=== PATIENT | female | born 1975 | race Caucasian/White ===

== ENCOUNTER 2017-03-28 22:22 | Emergency (ER) | payer MEDICARE, MEDICAID ==
[2017-03-28] MEDS ORDERED: Ondansetron 4 MG/2 ML SDV IVPUSH ONE (22:49)
[2017-03-28] MEDS ORDERED: Sodium Chloride 0.9% 1,000 ML IV SCH (23:00)
[2017-03-28 23:39] VITALS: BP 130/87
--- NOTE | 2017-03-29 00:28 | EDM.PDOC ---
ED HPI GENERAL MEDICAL PROBLEM - General Chief Complaint: General Stated Complaint: DEHYDRATED Time Seen by Provider: 03/28/17 22:48 Source of Information: Reports: Patient, Family History Limitations: Reports: No Limitations - History of Present Illness INITIAL COMMENTS - FREE TEXT/NARRATIVE: History of present illness: [41-year-old female who works at [employer] presents here complaining of dehydration. She was out fishing today as well. Her mother is here with her and states that she's had trouble with dehydration before she doesn't drink enough fluids. 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 She has a seizure disorder and states that she usually has seizures at night and she does not remember them. She's had no fever chills sweats cough cold symptoms sore throat she has some nausea no suspicion diarrhea dysuria she did vomit one time prior to coming in.] Review of systems: As per history of present illness and below otherwise all systems reviewed and negative. Past medical history: As per history of present illness and as reviewed below otherwise noncontributory. Surgical history: As per history of present illness and as reviewed below otherwise noncontributory. Social history: No reported history of drug or alcohol abuse. Family history: As per history of present illness and as reviewed below otherwise noncontributory. Physical exam: HEENT: Atraumatic, normocephalic, pupils reactive, negative for conjunctival pallor or scleral icterus, mucous membranes dry, throat clear, neck supple, nontender, trachea midline. Lungs: Clear to auscultation, breath sounds equal bilaterally, chest nontender. Heart: S1S2, regular, negative for clicks, rubs, or JVD. Abdomen: Soft, nondistended, nontender. Negative for masses or hepatosplenomegaly. Negative for costovertebral tenderness. Pelvis: Stable nontender. Genitourinary: Deferred. Rectal: Deferred. Extremities: Atraumatic, negative for cords or calf pain. Neurovascular unremarkable. Neuro: Awake, alert, oriented. Cranial nerves II through XII unremarkable. Cerebellum unremarkable. Motor and sensory unremarkable throughout. Exam nonfocal. Diagnostics: [CBC and complete metabolic panel were done along with a UA and urine drug screen of the diagnostic significance was discovered. She has no dysuria you know she has some leukocyte esterase in her urine I don't believe she has UTI] Therapeutics: [She received a liter of fluids while here plus Zofran and felt better] Impression: [Dehydration] Plan: [Follow-up as needed. I took some time to talk to her about how to hydrate at home and at work.] Definitive disposition and diagnosis as appropriate pending reevaluation and review of above. - Related Data Allergies Allergy/AdvReac Type Severity Reaction Status Date / Time No Known Allergies Allergy Verified 02/08/16 21:07 Home Meds: Home Meds Citalopram [Citalopram Hbr] 40 mg PO DAILY 12/30/13 [History] Levothyroxine [Synthroid] 50 mcg PO BEDTIME 12/30/13 [History] PHENobarbital 97.2 mg PO DAILY 12/30/13 [History] Phenytoin Sodium Extended [Dilantin] 230 mg PO DAILY 12/30/13 [History] Multi-Vitamin 1 tab PO DAILY 02/28/15 [History] Past Medical History HEENT History: Reports: Impaired Vision Neurological History: Reports: Seizure Other Neuro History: epilepsy Psychiatric History: Reports: Depression Endocrine/Metabolic History: Reports: Hypothyroidism - Past Surgical History GI Surgical History: Reports: Appendectomy Female Surgical History: Reports: Hysterectomy Social & Family History - Tobacco Use Smoking Status *Q: Never Smoker Second Hand Smoke Exposure: No - Caffeine Use Caffeine Use: Reports: None - Alcohol Use Days Per Week of Alcohol Use: 0 - Recreational Drug Use Recreational Drug Use: No - Living Situation & Occupation Living situation: Reports: Single Occupation: Employed ED ROS GENERAL - Review of Systems Review Of Systems: ROS reveals no pertinent complaints other than HPI. ED EXAM, GENERAL - Physical Exam Exam: See Below Course - Vital Signs Last Recorded V/S: Last Vital Signs Temp 36.6 C 03/28/17 22:33 Pulse 84 03/28/17 22:33 Resp 20 03/28/17 22:33 BP 130/87 03/28/17 23:38 Pulse Ox 94 L 03/28/17 22:33 - Orders/Labs/Meds Orders: Active Orders 24 hr Category Date Time Status Sodium Chloride 0.9% [Normal Saline] 1,000 ml Med 03/28/17 23:00 Active IV ASDIRECTED Medication Orders Sodium Chloride (Normal Saline) 1,000 mls @ 999 mls/hr IV ASDIRECTED BRII Last Admin: 03/28/17 23:04 Dose: 999 mls/hr Labs: Laboratory Tests 03/28/17 03/28/17 03/28/17 Range/Units 22:48 22:48 22:48 WBC 5.8 (4.5-11.0) K/uL RBC 4.86 (3.30-5.50) M/uL Hgb 12.7 D (12.0-15.0) g/dL Hct 39.3 (36.0-48.0) % MCV 81 (80-98) fL MCH 26 L (27-31) pg MCHC 32 (32-36) % Plt Count 332 (150-400) K/uL Neut % (Auto) 48 (36-66) % Lymph % (Auto) 38 (24-44) % [place] % (Auto) 14 H (2-6) % Eos % (Auto) 0 L (2-4) % Baso % (Auto) 0 (0-1) % Sodium 138 L (140-148) mmol/L Potassium 4.0 (3.6-5.2) mmol/L Chloride 103 (100-108) mmol/L Carbon Dioxide 27 (21-32) mmol/L Anion Gap 12.0 (5.0-14.0) mmol/L BUN 15 D (7-18) mg/dL Creatinine 0.9 (0.6-1.0) mg/dL Est Cr Clr Drug Dosing 61.51 mL/min Estimated GFR (MDRD) > 60 (>60) Glucose 101 (74-106) mg/dL Calcium 8.0 L (8.5-10.1) mg/dL Total Bilirubin 0.1 L (0.2-1.0) mg/dL AST 24 (15-37) U/L ALT 33 (12-78) U/L Alkaline Phosphatase 183 H (46-116) U/L Total Protein 7.6 (6.4-8.2) g/dL Albumin 3.4 (3.4-5.0) g/dL Globulin 4.2 H (2.3-3.5) g/dL Albumin/Globulin Ratio 0.8 L (1.2-2.2) TSH, Ultra Sensitive (0.358-3.740) uIU/mL Urine Color Urine Appearance Urine pH (4.5-8.0) Ur Specific [place] (1.008-1.030) Urine Protein (NEGATIVE) mg/dL Urine Glucose (UA) (NEGATIVE) mg/dL Urine Ketones (NEGATIVE) mg/dL Urine Occult Blood (NEGATIVE) Urine Nitrite (NEGATIVE) Urine Bilirubin (NEGATIVE) Urine Urobilinogen (NORMAL) mg/dL Ur Leukocyte Esterase (NEGATIVE) Urine RBC (0-5) Urine WBC (0-5) Ur Epithelial Cells Amorphous Sediment Urine Bacteria Urine Mucus Urine HCG, Qual Urine Opiates Screen (NEGATIVE) Ur Oxycodone Screen (NEGATIVE) Urine Methadone Screen (NEGATIVE) Ur Propoxyphene Screen (NEGATIVE) Ur Barbiturates Screen (NEGATIVE) Ur Tricyclics Screen (NEGATIVE) Ur Phencyclidine Scrn (NEGATIVE) Ur Amphetamine Screen (NEGATIVE) U Methamphetamines Scrn (NEGATIVE) Urine MDMA Screen (NEGATIVE) U Benzodiazepines Scrn (NEGATIVE) U Cocaine Metab Screen (NEGATIVE) U Marijuana (THC) Screen (NEGATIVE) Ethyl Alcohol < 3 mg/dL 03/28/17 03/28/17 03/28/17 Range/Units 22:50 23:38 23:38 WBC (4.5-11.0) K/uL RBC (3.30-5.50) M/uL Hgb (12.0-15.0) g/dL Hct (36.0-48.0) % MCV (80-98) fL MCH (27-31) pg MCHC (32-36) % Plt Count (150-400) K/uL Neut % (Auto) (36-66) % Lymph % (Auto) (24-44) % [place] % (Auto) (2-6) % Eos % (Auto) (2-4) % Baso % (Auto) (0-1) % Sodium (140-148) mmol/L Potassium (3.6-5.2) mmol/L Chloride (100-108) mmol/L Carbon Dioxide (21-32) mmol/L Anion Gap (5.0-14.0) mmol/L BUN (7-18) mg/dL Creatinine (0.6-1.0) mg/dL Est Cr Clr Drug Dosing mL/min Estimated GFR (MDRD) (>60) Glucose (74-106) mg/dL Calcium (8.5-10.1) mg/dL Total Bilirubin (0.2-1.0) mg/dL AST (15-37) U/L ALT (12-78) U/L Alkaline Phosphatase (46-116) U/L Total Protein (6.4-8.2) g/dL Albumin (3.4-5.0) g/dL Globulin (2.3-3.5) g/dL Albumin/Globulin Ratio (1.2-2.2) TSH, Ultra Sensitive 1.681 (0.358-3.740) uIU/mL Urine Color Yellow Urine Appearance Cloudy Urine pH 5.0 (4.5-8.0) Ur Specific [place] 1.030 (1.008-1.030) Urine Protein Negative (NEGATIVE) mg/dL Urine Glucose (UA) Negative (NEGATIVE) mg/dL Urine Ketones Negative (NEGATIVE) mg/dL Urine Occult Blood Moderate (NEGATIVE) Urine Nitrite Negative (NEGATIVE) Urine Bilirubin Small (NEGATIVE) Urine Urobilinogen 1 (NORMAL) mg/dL Ur Leukocyte Esterase Moderate (NEGATIVE) Urine RBC 5-10 H (0-5) Urine WBC 5-10 H (0-5) Ur Epithelial Cells Few Amorphous Sediment Few Urine Bacteria Few Urine Mucus Numerous Urine HCG, Qual Urine Opiates Screen Negative (NEGATIVE) Ur Oxycodone Screen Negative (NEGATIVE) Urine Methadone Screen Negative (NEGATIVE) Ur Propoxyphene Screen Negative (NEGATIVE) Ur Barbiturates Screen Positive H (NEGATIVE) Ur Tricyclics Screen Negative (NEGATIVE) Ur Phencyclidine Scrn Negative (NEGATIVE) Ur Amphetamine Screen Negative (NEGATIVE) U Methamphetamines Scrn Negative (NEGATIVE) Urine MDMA Screen Negative (NEGATIVE) U Benzodiazepines Scrn Negative (NEGATIVE) U Cocaine Metab Screen Negative (NEGATIVE) U Marijuana (THC) Screen Negative (NEGATIVE) Ethyl Alcohol mg/dL 03/28/17 Range/Units 23:38 WBC (4.5-11.0) K/uL RBC (3.30-5.50) M/uL Hgb (12.0-15.0) g/dL Hct (36.0-48.0) % MCV (80-98) fL MCH (27-31) pg MCHC (32-36) % Plt Count (150-400) K/uL Neut % (Auto) (36-66) % Lymph % (Auto) (24-44) % [place] % (Auto) (2-6) % Eos % (Auto) (2-4) % Baso % (Auto) (0-1) % Sodium (140-148) mmol/L Potassium (3.6-5.2) mmol/L Chloride (100-108) mmol/L Carbon Dioxide (21-32) mmol/L Anion Gap (5.0-14.0) mmol/L BUN (7-18) mg/dL Creatinine (0.6-1.0) mg/dL Est Cr Clr Drug Dosing mL/min Estimated GFR (MDRD) (>60) Glucose (74-106) mg/dL Calcium (8.5-10.1) mg/dL Total Bilirubin (0.2-1.0) mg/dL AST (15-37) U/L ALT (12-78) U/L Alkaline Phosphatase (46-116) U/L Total Protein (6.4-8.2) g/dL Albumin (3.4-5.0) g/dL Globulin (2.3-3.5) g/dL Albumin/Globulin Ratio (1.2-2.2) TSH, Ultra Sensitive (0.358-3.740) uIU/mL Urine Color Urine Appearance Urine pH (4.5-8.0) Ur Specific [place] (1.008-1.030) Urine Protein (NEGATIVE) mg/dL Urine Glucose (UA) (NEGATIVE) mg/dL Urine Ketones (NEGATIVE) mg/dL Urine Occult Blood (NEGATIVE) Urine Nitrite (NEGATIVE) Urine Bilirubin (NEGATIVE) Urine Urobilinogen (NORMAL) mg/dL Ur Leukocyte Esterase (NEGATIVE) Urine RBC (0-5) Urine WBC (0-5) Ur Epithelial Cells Amorphous Sediment Urine Bacteria Urine Mucus Urine HCG, Qual Negative Urine Opiates Screen (NEGATIVE) Ur Oxycodone Screen (NEGATIVE) Urine Methadone Screen (NEGATIVE) Ur Propoxyphene Screen (NEGATIVE) Ur Barbiturates Screen (NEGATIVE) Ur Tricyclics Screen (NEGATIVE) Ur Phencyclidine Scrn (NEGATIVE) Ur Amphetamine Screen (NEGATIVE) U Methamphetamines Scrn (NEGATIVE) Urine MDMA Screen (NEGATIVE) U Benzodiazepines Scrn (NEGATIVE) U Cocaine Metab Screen (NEGATIVE) U Marijuana (THC) Screen (NEGATIVE) Ethyl Alcohol mg/dL Meds: Medications Generic Name Dose Route Start Last Admin Trade Name Freq PRN Reason Stop Dose Admin Sodium Chloride 1,000 mls @ 999 mls/hr 03/28/17 23:00 03/28/17 23:04 Normal Saline IV 999 mls/hr ASDIRECTED BRII Administration Discontinued Medications Generic Name Dose Route Start Last Admin Trade Name Boone PRN Reason Stop Dose Admin Ondansetron HCl 4 mg 03/28/17 22:49 03/28/17 23:05 Zofran IVPUSH 03/28/17 22:50 4 mg ONETIME ONE Administration Departure - Departure Time of Disposition: 00:26 Disposition: Home, Self-Care 01 Condition: Good Clinical Impression: Dehydration - Discharge Information Referrals: Salomon Medeiros MD [Primary Care Provider] - Forms: ED Department Discharge Additional Instructions: As we discussed I would recommend that she try drinking a quart of water in the morning when you get up so that you start your day well-hydrated. - My Orders Last 24 Hours: My Active Orders 03/28/17 23:00 Sodium Chloride 0.9% [Normal Saline] 1,000 ml IV ASDIRECTED - Assessment/Plan Last 24 Hours: My Active Orders 03/28/17 23:00 Sodium Chloride 0.9% [Normal Saline] 1,000 ml IV ASDIRECTED
== END 2017-03-29 00:35 | disposition home or self-care (01) ==
LOC: JP.ED 22:22
DX: E86.0 Dehydration (principal); F32.9 Major depressive disorder, single episode, unspecified; Z90.49 Acquired absence of other specified parts of digestive tract; Z79.899 Other long term (current) drug therapy
CPT/HCPCS: 36415; 80053; 80305; 81001; 81025; 84443; 85025; 96361; 96374; 99283; 99284; G0480; J2405; J7040

== ENCOUNTER 2017-09-08 19:47 | Emergency (ER) | payer MEDICARE, MEDICAID ==
[2017-09-08 20:14] VITALS: BP 142/85
[2017-09-08] MEDS ORDERED: Dental Adhesive 1 Tube DENT ONE (20:18)
[2017-09-08] MEDS ORDERED: Ketorolac 60 MG/2 ML SDV IM ONE (20:18)
--- NOTE | 2017-09-08 20:24 | EDM.PDOC ---
ED HPI GENERAL MEDICAL PROBLEM - General Chief Complaint: ENT Problem Stated Complaint: BROKEN TOOTH Time Seen by Provider: 09/08/17 20:14 Source of Information: Reports: Patient, RN Notes Reviewed History Limitations: Reports: No Limitations - History of Present Illness INITIAL COMMENTS - FREE TEXT/NARRATIVE: 42-year-old female presents emergency department today after losing a crown on one of her upper teeth she states is quite painful she has not tried anything no fevers right side tooth pain Pain Score (Numeric/FACES): 5 - Related Data Allergies Allergy/AdvReac Type Severity Reaction Status Date / Time No Known Allergies Allergy Verified 09/08/17 20:00 Home Meds: Home Meds Citalopram [Citalopram Hbr] 40 mg PO BEDTIME 12/30/13 [History] Levothyroxine [Synthroid] 50 mcg PO BEDTIME 12/30/13 [History] PHENobarbital 97.2 mg PO BEDTIME 12/30/13 [History] Phenytoin Sodium Extended [Dilantin] 230 mg PO BEDTIME 12/30/13 [History] Multi-Vitamin 1 tab PO BEDTIME 02/28/15 [History] Past Medical History HEENT History: Reports: Impaired Vision Neurological History: Reports: Seizure Other Neuro History: epilepsy Psychiatric History: Reports: Depression Endocrine/Metabolic History: Reports: Hypothyroidism, Obesity/BMI 30+ - Infectious Disease History Infectious Disease History: Reports: Chicken Pox - Past Surgical History GI Surgical History: Reports: Appendectomy Female Surgical History: Reports: Hysterectomy Musculoskeletal Surgical History: Reports: Other (See Below) Other Musculoskeletal Surgeries/Procedures:: bone spurs removed bilateral feet Social & Family History - Tobacco Use Smoking Status *Q: Never Smoker Second Hand Smoke Exposure: No - Caffeine Use Caffeine Use: Reports: Soda - Alcohol Use Days Per Week of Alcohol Use: 0 - Recreational Drug Use Recreational Drug Use: No - Living Situation & Occupation Living situation: Reports: Single Occupation: Employed ED ROS ENT - Review of Systems Review Of Systems: See Below Constitutional: Reports: No Symptoms HEENT: Reports: Dental Pain ED EXAM, ENT - Physical Exam Exam: See Below Text/Narrative:: Examination of mouth mucosa is moist and pink no erythema or exudate noted in soft palate tongue is midline uvula is midline she is missing the On her crown for tooth #3 Exam Limited By: No Limitations General Appearance: Alert, WD/WN, No Apparent Distress Course - Vital Signs Last Recorded V/S: Last Vital Signs Temp 96.3 F 09/08/17 20:10 Pulse 93 09/08/17 20:10 Resp 20 09/08/17 20:10 BP 142/85 H 09/08/17 20:10 Pulse Ox 92 L 09/08/17 20:10 - Orders/Labs/Meds Meds: Medications Discontinued Medications Generic Name Dose Route Start Last Admin Trade Name Boone PRN Reason Stop Dose Admin Denture Adhesive 1 applic 09/08/17 20:18 Dentemp Custom DENT 09/08/17 20:19 ONETIME ONE Ketorolac Tromethamine 60 mg 09/08/17 20:18 Toradol IM 09/08/17 20:19 ONETIME ONE Departure - Departure Time of Disposition: 20:23 Disposition: Home, Self-Care 01 Condition: Good Clinical Impression: Loss of retention of dental crown - Discharge Information Referrals: Salomon Medeiros MD [Primary Care Provider] - Additional Instructions: Please follow-up on September 10 at the [facility] dental clinic at 8:15 in the morning continue to use ibuprofen as needed for pain control, recommend chewing on the other side of the mouth - Assessment/Plan Plan: Assessment Acuity = acute Site and laterality = loss of crown tooth #3 Etiology = unclear etiology Manifestations = pain Location of injury = Home Lab values = none Plan The crown was replaced with dentistry temp, she was provided 60 mg of Toradol IM 1 referral to dental clinic was set up for Saturday at 8:15 in the morning This note was dictated using [employer] voice recognition software please call with any questions on syntax or duke.
== END 2017-09-08 20:57 | disposition home or self-care (01) ==
LOC: JP.ED 19:47
DX: K08.409 Partial loss of teeth, unspecified cause, unspecified class (principal); F32.9 Major depressive disorder, single episode, unspecified; E03.9 Hypothyroidism, unspecified
CPT/HCPCS: 96372; 99283; A9270; J1885

== ENCOUNTER 2018-06-14 22:27 | Emergency (ER) | payer MEDICARE, MEDICAID ==
[2018-06-14 22:33] VITALS: BP 146/77
[2018-06-14] MEDS ORDERED: Ondansetron 4 MG Tab.DIS PO ONE (23:55)
--- NOTE | 2018-06-14 23:57 | EDM.PDOC ---
ED HPI GENERAL MEDICAL PROBLEM - General Chief Complaint: Gastrointestinal Problem Stated Complaint: NAUSA VOMITING Time Seen by Provider: 06/14/18 22:56 Source of Information: Reports: Patient History Limitations: Reports: Other (speaks in very feeble voice) - Related Data Allergies Allergy/AdvReac Type Severity Reaction Status Date / Time No Known Allergies Allergy Verified 06/14/18 22:30 Home Meds: Home Meds Citalopram [Citalopram Hbr] 40 mg PO BEDTIME 12/30/13 [History] Levothyroxine [Synthroid] 50 mcg PO BEDTIME 12/30/13 [History] PHENobarbital 97.2 mg PO BEDTIME 12/30/13 [History] Phenytoin Sodium Extended [Dilantin] 230 mg PO BEDTIME 12/30/13 [History] Multi-Vitamin 1 tab PO BEDTIME 02/28/15 [History] Hydroquinone 1 gm TOP BID 06/14/18 [History] levETIRAcetam [Keppra] 500 mg PO BID 06/14/18 [History] Past Medical History HEENT History: Reports: Impaired Vision Neurological History: Reports: Seizure Other Neuro History: epilepsy Psychiatric History: Reports: Depression Endocrine/Metabolic History: Reports: Hypothyroidism, Obesity/BMI 30+ - Infectious Disease History Infectious Disease History: Reports: Chicken Pox - Past Surgical History GI Surgical History: Reports: Appendectomy Female Surgical History: Reports: Hysterectomy Musculoskeletal Surgical History: Reports: Other (See Below) Other Musculoskeletal Surgeries/Procedures:: bone spurs removed bilateral feet Social & Family History - Tobacco Use Smoking Status *Q: Never Smoker - Caffeine Use Caffeine Use: Reports: Soda - Recreational Drug Use Recreational Drug Use: No - Living Situation & Occupation Living situation: Reports: Single Occupation: Employed ED ROS GENERAL - Review of Systems Review Of Systems: Unable To Obtain (can barely get any history from her) ED EXAM, GI/ABD - Physical Exam Exam: See Below Exam Limited By: No Limitations General Appearance: Alert Eyes: Bilateral: Normal Appearance Throat/Mouth: Normal Inspection Respiratory/Chest: Lungs Clear Cardiovascular: Regular Rate, Rhythm, No Murmur GI/Abdominal Exam: Non-Tender Extremities: Normal Inspection Neurological: Alert (She seems to be exhibiting a deliberate sickly voice) Course - Vital Signs Last Recorded V/S: Last Vital Signs Temp 36.4 C 06/14/18 22:28 Pulse 99 06/14/18 22:28 Resp 16 06/14/18 22:28 BP 146/77 H 06/14/18 22:28 Pulse Ox 97 06/14/18 22:28 - Orders/Labs/Meds Orders: Active Orders 24 hr Category Date Time Status EKG Documentation Completion [RC] ASDIRECTED Care 06/14/18 22:54 Active EKG 12 Lead [EK] Urgent Ther 06/14/18 22:54 Ordered Labs: Laboratory Tests 06/14/18 06/14/18 Range/Units 23:05 23:05 WBC 6.6 (4.5-11.0) K/uL RBC 4.55 (3.30-5.50) M/uL Hgb 11.7 L (12.0-15.0) g/dL Hct 36.0 (36.0-48.0) % MCV 79 L (80-98) fL MCH 26 L (27-31) pg MCHC 33 (32-36) % Plt Count 333 (150-400) K/uL Neut % (Auto) 51 (36-66) % Lymph % (Auto) 34 (24-44) % [place] % (Auto) 15 H (2-6) % Eos % (Auto) 0 L (2-4) % Baso % (Auto) 0 (0-1) % Sodium 137 L (140-148) mmol/L Potassium 4.0 (3.6-5.2) mmol/L Chloride 104 (100-108) mmol/L Carbon Dioxide 23 (21-32) mmol/L Anion Gap 14.0 (5.0-14.0) mmol/L BUN 15 (7-18) mg/dL Creatinine 0.8 (0.6-1.0) mg/dL Est Cr Clr Drug Dosing 80.75 mL/min Estimated GFR (MDRD) > 60 (>60) Glucose 104 (74-106) mg/dL Calcium 7.1 L (8.5-10.1) mg/dL Total Bilirubin 0.1 L (0.2-1.0) mg/dL AST 22 (15-37) U/L ALT 29 (12-78) U/L Alkaline Phosphatase 142 H (46-116) U/L Total Protein 7.3 (6.4-8.2) g/dL Albumin 3.3 L (3.4-5.0) g/dL Globulin 4.0 H (2.3-3.5) g/dL Albumin/Globulin Ratio 0.8 L (1.2-2.2) Meds: Medications Discontinued Medications Generic Name Dose Route Start Last Admin Trade Name Boone PRN Reason Stop Dose Admin Ondansetron HCl 4 mg 06/14/18 23:55 06/15/18 00:04 Zofran Odt PO 06/14/18 23:56 4 mg ONETIME ONE Administration - Re-Assessments/Exams Free Text/Narrative Re-Assessment/Exam: 06/15/18 06:43 EKG showed no ischemic changes. Labs noted. She says she just wants to go home. Her nausea is gone. Zofran 4 mg given. An rx for same offered. Departure - Departure Time of Disposition: 23:56 Disposition: Home, Self-Care 01 Condition: Fair Clinical Impression: Nausea - Discharge Information Instructions: Nausea, Adult, [id number] Referrals: PCP,None [Primary Care Provider] - Forms: ED Department Discharge Additional Instructions: Use Zofran (ondansetron 4mg) as needed for nausea. You may take Pepto-Bismol at the same time if you wish. - My Orders Last 24 Hours: My Active Orders 06/14/18 22:54 EKG Documentation Completion [RC] ASDIRECTED EKG 12 Lead [EK] Urgent - Assessment/Plan Last 24 Hours: My Active Orders 06/14/18 22:54 EKG Documentation Completion [RC] ASDIRECTED EKG 12 Lead [EK] Urgent
== END 2018-06-15 00:18 | disposition home or self-care (01) ==
LOC: JP.ED 22:27
DX: R11.0 Nausea (principal); E03.9 Hypothyroidism, unspecified; E66.9 Obesity, unspecified; Z79.899 Other long term (current) drug therapy
CPT/HCPCS: 36415; 80053; 85025; 93005; 99284; A9270

== ENCOUNTER 2018-11-22 16:53 | Emergency (ER) | payer MEDICARE, MEDICAID ==
[2018-11-22 17:15] VITALS: BP 134/86
--- NOTE | 2018-11-22 18:11 | EDM.PDOC ---
<Mandy Medina M - Last Filed: 11/22/18 19:48> ED HPI GENERAL MEDICAL PROBLEM - General Chief Complaint: Gastrointestinal Problem Stated Complaint: MEDICAL Time Seen by Provider: 11/22/18 17:50 Source of Information: Reports: Patient History Limitations: Reports: No Limitations - History of Present Illness Onset: Today Onset Time: 08:00 Location: Reports: Abdomen (central) Quality: Reports: Ache, Other (cramping) Severity: Moderate (intermittent intense pain) Improves with: Reports: None Worsens with: Reports: Movement Associated Symptoms: Reports: Malaise, Weakness (describes extreme fatigue) - Related Data Allergies Allergy/AdvReac Type Severity Reaction Status Date / Time No Known Allergies Allergy Verified 11/22/18 17:22 Home Meds: Home Meds Citalopram [Citalopram Hbr] 40 mg PO BEDTIME 12/30/13 [History] Levothyroxine [Synthroid] 50 mcg PO BEDTIME 12/30/13 [History] PHENobarbital 97.2 mg PO BEDTIME 12/30/13 [History] Phenytoin Sodium Extended [Dilantin] 230 mg PO BEDTIME 12/30/13 [History] Multi-Vitamin 1 tab PO BEDTIME 02/28/15 [History] levETIRAcetam [Keppra] 500 mg PO BID 06/14/18 [History] Amoxicillin/Potassium Clav [Amox-Clav 875-125 mg Tablet] 11/22/18 [History] Loratadine 11/22/18 [History] Past Medical History HEENT History: Reports: Impaired Vision Neurological History: Reports: Seizure Other Neuro History: epilepsy Psychiatric History: Reports: Depression Endocrine/Metabolic History: Reports: Hypothyroidism, Obesity/BMI 30+ - Infectious Disease History Infectious Disease History: Reports: Chicken Pox - Past Surgical History GI Surgical History: Reports: Appendectomy Female Surgical History: Reports: Hysterectomy Musculoskeletal Surgical History: Reports: Other (See Below) Other Musculoskeletal Surgeries/Procedures:: bone spurs removed bilateral feet Social & Family History - Tobacco Use Smoking Status *Q: Never Smoker - Caffeine Use Caffeine Use: Reports: Soda - Living Situation & Occupation Living situation: Reports: Single Occupation: Employed ED ROS GENERAL - Review of Systems Review Of Systems: See Below Constitutional: Reports: No Symptoms HEENT: Reports: No Symptoms Respiratory: Reports: No Symptoms Cardiovascular: Reports: No Symptoms Endocrine: Reports: No Symptoms GI/Abdominal: Reports: Abdominal Pain (central region, sandhya-umbilical), Nausea ( feels like could vomit, but cannot self-induce; feels like would possibly feel better if she did so. ), Other (has had formed bowel movement today that was very different ) : Reports: No Symptoms Musculoskeletal: Reports: No Symptoms Skin: Reports: No Symptoms Neurological: Reports: No Symptoms Psychiatric: Reports: No Symptoms Hematologic/Lymphatic: Reports: No Symptoms Immunologic: Reports: No Symptoms ED EXAM, GI/ABD - Physical Exam Exam: See Below Exam Limited By: No Limitations General Appearance: Alert, WD/WN, Mild Distress Ears: Hearing Grossly Normal Head: Atraumatic, Normocephalic Neck: Normal Inspection, Full Range of Motion Respiratory/Chest: No Respiratory Distress, Lungs Clear, Normal Breath Sounds Cardiovascular: Regular Rate, Rhythm GI/Abdominal Exam: Normal Bowel Sounds, Guarding (even with mild palpation), Tender (diffuse middle abdominal pain; patient holds hand sandhya-umbilical ) Extremities: Normal Inspection, No Pedal Edema Neurological: Alert, Oriented, Normal Cognition Psychiatric: Normal Affect, Normal Mood Skin Exam: Dry, Intact, Normal Color, No Rash Lymphatic: No Adenopathy Course - Vital Signs Last Recorded V/S: Last Vital Signs Temp 97.3 F 11/22/18 17:30 Pulse 94 11/22/18 17:30 Resp 18 11/22/18 17:30 BP 134/86 11/22/18 17:30 Pulse Ox 95 11/22/18 17:30 - Orders/Labs/Meds Orders: Active Orders 24 hr Category Date Time Status Peripheral IV Care [RC] . DIRECTED Care 11/22/18 19:59 Active CULTURE URINE [RM] Urgent Lab 11/22/18 21:00 Received PHENobarbital Med 11/23/18 21:45 Once 97.2 mg PO DAILY ONE Phenytoin Med 11/23/18 21:44 Once 200 mg PO DAILY ONE Sodium Chloride 0.9% [Normal Saline] 1,000 ml Med 11/22/18 20:00 Active IV ASDIRECTED Sodium Chloride 0.9% [Normal Saline] 85 ml Med 11/22/18 20:15 Active IV ASDIRECTED Sodium Chloride 0.9% [Saline Flush] Med 11/22/18 19:59 Active 10 ml FLUSH ASDIRECTED PRN Peripheral IV Insertion Adult [OM.PC] Urgent Oth 11/22/18 19:59 Ordered Medication Orders Sodium Chloride (Normal Saline) 1,000 mls @ 999 mls/hr IV ASDIRECTED BRII Last Admin: 11/22/18 20:12 Dose: 999 mls/hr Sodium Chloride (Normal Saline) 85 mls @ 3 mls/sec IV ASDIRECTED BRII Last Admin: 11/22/18 20:34 Dose: 3 mls/sec Phenobarbital (Phenobarbital) 97.2 mg PO DAILY ONE Stop: 11/23/18 21:46 Phenytoin Sodium (Phenytoin) 200 mg PO DAILY ONE Stop: 11/23/18 21:45 Sodium Chloride (Saline Flush) 10 ml FLUSH ASDIRECTED PRN PRN Reason: Keep Vein Open Last Admin: 11/22/18 20:34 Dose: 10 ml Admin: 11/22/18 20:11 Dose: 10 ml Labs: Laboratory Tests 11/22/18 11/22/18 11/22/18 Range/Units 18:24 18:57 19:25 WBC 4.2 L (4.5-11.0) K/uL RBC 4.94 (3.30-5.50) M/uL Hgb 14.0 D (12.0-15.0) g/dL Hct 42.8 (36.0-48.0) % MCV 87 (80-98) fL MCH 28 (27-31) pg MCHC 33 (32-36) % Plt Count 344 (150-400) K/uL Neut % (Auto) 45 (36-66) % Lymph % (Auto) 40 (24-44) % Martin % (Auto) 15 H (2-6) % Eos % (Auto) 0 L (2-4) % Baso % (Auto) 0 (0-1) % Sodium 137 L (140-148) mmol/L Potassium 3.8 (3.6-5.2) mmol/L Chloride 101 (100-108) mmol/L Carbon Dioxide 27 (21-32) mmol/L Anion Gap 12.8 (5.0-14.0) mmol/L BUN 7 D (7-18) mg/dL Creatinine 0.7 (0.6-1.0) mg/dL Est Cr Clr Drug Dosing 92.29 mL/min Estimated GFR (MDRD) > 60 (>60) Glucose 92 (74-106) mg/dL Calcium 8.5 D (8.5-10.1) mg/dL Total Bilirubin 0.3 D (0.2-1.0) mg/dL AST 34 (15-37) U/L ALT 53 D (12-78) U/L Alkaline Phosphatase 136 H (46-116) U/L C-Reactive Protein 0.38 H (0.0-0.3) mg/dL Total Protein 7.3 (6.4-8.2) g/dL Albumin 3.4 (3.4-5.0) g/dL Globulin 3.9 H (2.3-3.5) g/dL Albumin/Globulin Ratio 0.9 L (1.2-2.2) Urine Color Yellow Urine Appearance Slightly cloudy Urine pH 5.0 (4.5-8.0) Ur Specific [place] 1.025 (1.008-1.030) Urine Protein 30 H (NEGATIVE) mg/dL Urine Glucose (UA) Normal (NEGATIVE) mg/dL Urine Ketones 15 H (NEGATIVE) mg/dL Urine Occult Blood Trace (NEGATIVE) Urine Nitrite Negative (NEGATIVE) Urine Bilirubin Negative (NEGATIVE) Urine Urobilinogen Normal (NORMAL) mg/dL Ur Leukocyte Esterase Small (NEGATIVE) Urine RBC 5-10 H (0-5) Urine WBC 10-20 H (0-5) Ur Epithelial Cells Many Amorphous Sediment Not seen Urine Bacteria Moderate Urine Mucus Numerous Meds: Medications Generic Name Dose Route Start Last Admin Trade Name Freq PRN Reason Stop Dose Admin Sodium Chloride 1,000 mls @ 999 mls/hr 11/22/18 20:00 11/22/18 20:12 Normal Saline IV 999 mls/hr ASDIRECTED BRII Administration Sodium Chloride 85 mls @ 3 mls/sec 11/22/18 20:15 11/22/18 20:34 Normal Saline IV 3 mls/sec ASDIRECTED BRII Administration Phenobarbital 97.2 mg 11/23/18 21:45 Phenobarbital PO 11/23/18 21:46 DAILY ONE Phenytoin Sodium 200 mg 11/23/18 21:44 Phenytoin PO 11/23/18 21:45 DAILY ONE Sodium Chloride 10 ml 11/22/18 19:59 11/22/18 20:34 Saline Flush FLUSH 10 ml ASDIRECTED PRN Administration Keep Vein Open Discontinued Medications Generic Name Dose Route Start Last Admin Trade Name Boone PRN Reason Stop Dose Admin Fentanyl 50 mcg 11/22/18 19:59 11/22/18 20:11 Sublimaze IVPUSH 11/22/18 20:00 50 mcg ONETIME ONE Administration Iopamidol 150 ml 11/22/18 20:15 11/22/18 20:34 Isovue-300 (61%) IV 150 ml . DIRECTED BRII Administration Ketorolac Tromethamine 60 mg 11/22/18 18:36 11/22/18 19:33 Toradol IM 11/22/18 18:37 60 mg ONETIME ONE Administration Ondansetron HCl 4 mg 11/22/18 18:28 11/22/18 19:32 Zofran Odt PO 11/22/18 18:29 4 mg ONETIME ONE Administration Phenytoin Sodium Confirm 11/22/18 22:10 Phenytoin Administered 11/22/18 22:11 Dose 200 mg .ROUTE .STK-MED ONE Sodium Chloride 10 ml 11/22/18 20:07 Saline Flush FLUSH 11/22/18 20:08 ONETIME ONE Departure - Departure Disposition: Home, Self-Care 01 Clinical Impression: Urinary tract infection Qualifiers: Urinary tract infection type: acute cystitis Hematuria presence: with hematuria Qualified Code(s): N30.01 - Acute cystitis with hematuria - Discharge Information Referrals: Salomon Medeiros MD [Primary Care Provider] - Forms: ED Department Discharge Additional Instructions: The culture results will be available in approximately 3-4 days at which time we 'll contact you for a different antibiotic choice if appropriate, follow-up with your primary care in 2-3 days if no improvement with your abdominal pain, call return to the emergency department worsening of symptoms - My Orders Last 24 Hours: My Active Orders 11/22/18 19:59 Peripheral IV Care [RC] . DIRECTED Sodium Chloride 0.9% [Saline Flush] 10 ml FLUSH ASDIRECTED PRN Peripheral IV Insertion Adult [OM.PC] Urgent 11/22/18 20:00 Sodium Chloride 0.9% [Normal Saline] 1,000 ml IV ASDIRECTED 11/22/18 20:15 Sodium Chloride 0.9% [Normal Saline] 85 ml IV ASDIRECTED 11/22/18 21:00 CULTURE URINE [RM] Urgent 11/23/18 21:44 Phenytoin 200 mg PO DAILY ONE 11/23/18 21:45 PHENobarbital 97.2 mg PO DAILY ONE - Assessment/Plan Last 24 Hours: My Active Orders 11/22/18 19:59 Peripheral IV Care [RC] . DIRECTED Sodium Chloride 0.9% [Saline Flush] 10 ml FLUSH ASDIRECTED PRN Peripheral IV Insertion Adult [OM.PC] Urgent 11/22/18 20:00 Sodium Chloride 0.9% [Normal Saline] 1,000 ml IV ASDIRECTED 11/22/18 20:15 Sodium Chloride 0.9% [Normal Saline] 85 ml IV ASDIRECTED 11/22/18 21:00 CULTURE URINE [RM] Urgent 11/23/18 21:44 Phenytoin 200 mg PO DAILY ONE 11/23/18 21:45 PHENobarbital 97.2 mg PO DAILY ONE <Jose Callejas - Last Filed: 11/22/18 22:38> ED EXAM, GI/ABD - Physical Exam Text/Narrative:: Agree with exam below GI/Abdominal Exam: Soft Departure - Departure Time of Disposition: 22:37 Condition: Fair - Assessment/Plan Plan: Assessment Acuity = acute Site and laterality = urinary tract infection comp came the patient who is currently on Augmentin for antibiotic Etiology = probable bacterial cause Manifestations = abdominal pain Location of injury = Home Lab values = CBC and CMP unremarkable urinalysis does reveal 5-10 rbc's consistent hematuria and 1020 WBCs consistent pyuria cultures pending Plan She was able to tolerate a meal which may have helped her abdominal pain and discussed with her her urine results with her consistent with urinary tract infection she elected to wait until the culture comes back for starting any new antibiotic she will stop her appointment I'll primary care 2-3 days if not better Jose Hansen MD was personally available for consultation in the ED. I have reviewed the chart and agree with the documentation as recorded by the HOME APPLIANCE TECH Student, including the assessment, treatment plan and disposition. Jose Hansen MD personally saw and examined the patient. I have reviewed and agree with the HOME APPLIANCE TECH Student's findings. This note was dictated using Polar voice recognition software please call with any questions on syntax or grammar.
[2018-11-22] MEDS ORDERED: Ondansetron 4 MG Tab.DIS PO ONE (18:28)
[2018-11-22] MEDS ORDERED: Ketorolac 60 MG/2 ML SDV IM ONE (18:36)
[2018-11-22] MEDS ORDERED: fentaNYL 100 MCG/2 ML SDV IVPUSH ONE (19:59)
[2018-11-22] MEDS ORDERED: Sodium Chloride 0.9% 1,000 ML IV SCH (20:00)
[2018-11-22] MEDS ORDERED: Sodium Chloride 0.9% 10 ML Syringe FLUSH ONE (20:07)
[2018-11-22] MEDS: Sodium Chloride 0.9% 10 ML Syringe FLUSH PRN ×2 (20:11→20:34)
[2018-11-22] MEDS ORDERED: Iopamidol 612 MG/ML 150 ML Bottle IV SCH (20:15)
--- NOTE | 2018-11-22 21:33 | CRLCT ---
Epigastric pain. TECHNIQUE: Contrast-enhanced CT abdomen pelvis 150 mL Isovue administered. COMPARISON: No comparison studies are available. FINDINGS: Heart size is normal. No pericardial effusion or pleural effusion. Minimal basilar atelectasis. Small hiatal hernia. Sub centimeter low-density subcentimeter lesion in the posterior spleen likely reflects a benign finding. Liver, adrenal glands, pancreas are unremarkable. Stomach is nondistended and incompletely evaluated. Gallbladder is unremarkable. Symmetric enhancement of both kidneys. There is no hydronephrosis or nephrolithiasis. Urinary bladder decompressed. Tiny bit of fluid in the pelvis nonspecific. Bowel appears unremarkable. Appendix is not seen. No inflammatory change. Hysterectomy. Diastasis of the rectus abdominus muscle with protrusion of a loop bowel anteriorly. The overlying fascia appears intact. No suspicious bony lesions are seen. Impression: 1. No acute findings in the abdomen or pelvis. 2. Small hiatal hernia. Please note that all CT scans at this facility use dose modulation, iterative reconstruction, and/or weight-based dosing when appropriate to reduce radiation dose to as low as reasonably achievable. Dictated by Shanti Hamlin MD @ Nov 22 2018 9:20PM Signed by Dr. Shanti Hamlin @ Nov 22 2018 9:31PM
[2018-11-22] MEDS ORDERED: Phenytoin 100 MG Cap.ER ONE (22:10)
[2018-11-23] MEDS ORDERED: Phenytoin 100 MG Cap.ER PO ONE (21:44)
[2018-11-23] MEDS ORDERED: PHENobarbital 32.4 MG Tab PO ONE (21:45)
== END 2018-11-22 23:01 | disposition home or self-care (01) ==
LOC: JP.ED 16:53
DX: N30.01 Acute cystitis with hematuria (principal); E66.9 Obesity, unspecified
CPT/HCPCS: 36415; 74177; 80053; 81001; 85025; 86140; 87086; 96361; 96372; 96374; 99284; A9270; J1885; J3010; J7030

== ENCOUNTER 2019-04-14 19:19 | Emergency (ER) | payer MEDICARE, MEDICAID ==
[2019-04-14 19:39] VITALS: BP 129/75; PULSE 82
--- NOTE | 2019-04-14 19:51 | EDM.PDOC ---
ED HPI GENERAL MEDICAL PROBLEM - General Chief Complaint: General Stated Complaint: MEDICAL VIA [place] Time Seen by Provider: 04/14/19 19:35 Source of Information: Reports: Patient, EMS, Old Records, RN History Limitations: Reports: No Limitations - History of Present Illness INITIAL COMMENTS - FREE TEXT/NARRATIVE: 43 yo female was at the park today and got sweaty, light-headed, and had some nausea. EMS was at the park and checked her out and offered to bring her to the ER. En route they gave NS 250 ml IV and Zofran 4 mg IV. She is feeling better now. Has only been outside about 45 min and was not exercising. Has a seizure disorder, but this was different. No recent fever, vomiting, diarrhea, black stools or bloody stools. Was eating at the park. Onset: Today Onset Date: 04/14/19 Onset Time: 19:00 Duration: Minutes: Location: Reports: Generalized Quality: Reports: Other (no pain reported) Severity: Moderate Improves with: Reports: Other (IV fluids, Zofran and rest in a cool environment. ) Worsens with: Reports: Other (? heat/sun exposure) Context: Reports: Other (see HPI) Associated Symptoms: Reports: Nausea/Vomiting (no vomiting), Other (Has had cold sx's lately). 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) (See HPI) - Related Data Allergies Allergy/AdvReac Type Severity Reaction Status Date / Time No Known Allergies Allergy Verified 11/22/18 17:22 Home Meds: Home Meds Citalopram [Citalopram Hbr] 40 mg PO BEDTIME 12/30/13 [History] Levothyroxine [Synthroid] 50 mcg PO BEDTIME 12/30/13 [History] PHENobarbital 97.2 mg PO BEDTIME 12/30/13 [History] Phenytoin Sodium Extended [Dilantin] 230 mg PO BEDTIME 12/30/13 [History] Multi-Vitamin 1 tab PO BEDTIME 02/28/15 [History] levETIRAcetam [Keppra] 500 mg PO BID 06/14/18 [History] Past Medical History HEENT History: Reports: Impaired Vision Neurological History: Reports: Seizure Other Neuro History: epilepsy Psychiatric History: Reports: Depression Endocrine/Metabolic History: Reports: Hypothyroidism, Obesity/BMI 30+ - Infectious Disease History Infectious Disease History: Reports: Chicken Pox - Past Surgical History GI Surgical History: Reports: Appendectomy Female Surgical History: Reports: Hysterectomy Musculoskeletal Surgical History: Reports: Other (See Below) Other Musculoskeletal Surgeries/Procedures:: bone spurs removed bilateral feet Social & Family History - Family History Family Medical History: Noncontributory - Tobacco Use Smoking Status *Q: Never Smoker - Caffeine Use Caffeine Use: Reports: None - Recreational Drug Use Recreational Drug Use: No - Living Situation & Occupation Living situation: Reports: Single Occupation: Employed ED ROS GENERAL - Review of Systems Review Of Systems: See Below Constitutional: Reports: Malaise. Denies: Fever HEENT: Reports: No Symptoms Respiratory: Reports: No Symptoms Cardiovascular: Reports: Lightheadedness. Denies: Chest Pain, Dyspnea on Exertion, Orthopnea, Palpitations, Syncope Endocrine: Reports: No Symptoms GI/Abdominal: Reports: Nausea. Denies: Bloody Stool, Constipation, Diarrhea, Difficulty Swallowing, Distension, Hematemesis, Hematochezia, Vomiting : Reports: No Symptoms Musculoskeletal: Reports: No Symptoms Skin: Reports: No Symptoms Neurological: Reports: No Symptoms Psychiatric: Reports: No Symptoms ED EXAM, GENERAL - Physical Exam Exam: See Below Exam Limited By: No Limitations General Appearance: Alert, WD/WN, No Apparent Distress, Obese Eye Exam: Bilateral Eye: Normal Inspection Ears: Normal External Exam, Normal Canal, Hearing Grossly Normal Ear Exam: Bilateral Ear: Auricle Normal, Canal Normal, TM normal Nose: Normal Inspection, No Blood Throat/Mouth: Normal Inspection, Normal Lips, Normal Oropharynx, Normal Voice, No Airway Compromise Head: Atraumatic, Normocephalic Neck: Normal Inspection Respiratory/Chest: No Respiratory Distress, Lungs Clear, Normal Breath Sounds, No Accessory Muscle Use Cardiovascular: Regular Rate, Rhythm, No Edema GI/Abdominal: Normal Bowel Sounds, Soft, Non-Tender, No Distention Back Exam: Normal Inspection. No: CVA Tenderness (R), CVA Tenderness (L) Extremities: Normal Inspection, Normal Range of Motion, Non-Tender, No Pedal Edema Neurological: Alert, Oriented, CN II-XII Intact, Normal Cognition, No Motor/ Sensory Deficits Psychiatric: Normal Affect, Normal Mood Skin Exam: Warm, Dry, Normal Color, No Rash Course - Vital Signs Last Recorded V/S: Last Vital Signs Temp 35.9 C 04/14/19 19:26 Pulse 82 04/14/19 19:26 Resp 14 04/14/19 19:26 BP 129/75 04/14/19 19:26 Pulse Ox 98 04/14/19 19:26 - Orders/Labs/Meds Orders: Active Orders 24 hr Category Date Time Status Orthostatic Vital Signs [RC] ASDIRECTED Care 04/14/19 19:28 Active Departure - Departure Time of Disposition: 20:00 Disposition: Home, Self-Care 01 Condition: Fair Clinical Impression: Heat intolerance - Discharge Information *PRESCRIPTION DRUG MONITORING PROGRAM REVIEWED*: No *COPY OF PRESCRIPTION DRUG MONITORING REPORT IN PATIENT ROBLES: No Referrals: Salomon Medeiros MD [Primary Care Provider] - Additional Instructions: Stay out of the heat for the rest of today. Recheck if worse or not improving. - My Orders Last 24 Hours: My Active Orders 04/14/19 19:28 Orthostatic Vital Signs [RC] ASDIRECTED - Assessment/Plan Last 24 Hours: My Active Orders 04/14/19 19:28 Orthostatic Vital Signs [RC] ASDIRECTED
== END 2019-04-14 20:07 | disposition home or self-care (01) ==
LOC: JP.ED 19:19
DX: R68.89 Other general symptoms and signs (principal); F32.9 Major depressive disorder, single episode, unspecified; E03.9 Hypothyroidism, unspecified; Z79.899 Other long term (current) drug therapy
CPT/HCPCS: 99282; 99283

== ENCOUNTER 2019-07-17 12:46 | Emergency (ER) | payer MEDICARE, MEDICAID ==
[2019-07-17 13:00] VITALS: BP 138/79; PULSE 70
--- NOTE | 2019-07-17 13:21 | EDM.PDOC ---
ED HPI GENERAL MEDICAL PROBLEM - General Chief Complaint: Lower Extremity Injury/Pain Stated Complaint: FALL Time Seen by Provider: 07/17/19 13:05 Source of Information: Reports: Patient History Limitations: Reports: No Limitations - History of Present Illness INITIAL COMMENTS - FREE TEXT/NARRATIVE: 44 yo presents with concerns of left knee pain. Slipped at her work station, fell to the carpeted ground. Landed on her side but scraped her knee. Staff at her [facility] called ambulance. She has not attempted to ambulate No headstrike No other concerns of pain. - Related Data Allergies Allergy/AdvReac Type Severity Reaction Status Date / Time No Known Allergies Allergy Verified 07/17/19 12:54 Home Meds: Home Meds Citalopram [Citalopram Hbr] 40 mg PO BEDTIME 12/30/13 [History] Levothyroxine [Synthroid] 50 mcg PO BEDTIME 12/30/13 [History] PHENobarbital 97.2 mg PO BEDTIME 12/30/13 [History] Phenytoin Sodium Extended [Dilantin] 230 mg PO BEDTIME 12/30/13 [History] Multi-Vitamin 1 tab PO BEDTIME 02/28/15 [History] Past Medical History HEENT History: Reports: Impaired Vision Neurological History: Reports: Seizure Other Neuro History: epilepsy Psychiatric History: Reports: Depression Endocrine/Metabolic History: Reports: Hypothyroidism, Obesity/BMI 30+ - Infectious Disease History Infectious Disease History: Reports: Chicken Pox - Past Surgical History GI Surgical History: Reports: Appendectomy Female Surgical History: Reports: Hysterectomy Musculoskeletal Surgical History: Reports: Other (See Below) Other Musculoskeletal Surgeries/Procedures:: bone spurs removed bilateral feet Social & Family History - Family History Family Medical History: Noncontributory - Tobacco Use Smoking Status *Q: Never Smoker - Caffeine Use Caffeine Use: Reports: None - Living Situation & Occupation Living situation: Reports: Single Occupation: Employed Review of Systems - Review of Systems Review Of Systems: See Below Constitutional: Reports: No Symptoms Eyes: Reports: No Symptoms Ears: Reports: No Symptoms Nose: Reports: No Symptoms Mouth/Throat: Reports: No Symptoms Respiratory: Reports: No Symptoms Cardiovascular: Reports: No Symptoms GI/Abdominal: Reports: No Symptoms Genitourinary: Reports: No Symptoms Musculoskeletal: Reports: Other (knee pain) Skin: Reports: No Symptoms Neurological: Reports: No Symptoms Psychiatric: Reports: No Symptoms ED EXAM, GENERAL - Physical Exam Exam: See Below Exam Limited By: No Limitations General Appearance: Alert, No Apparent Distress Ears: Normal External Exam Nose: Normal Inspection Throat/Mouth: Normal Inspection Head: Atraumatic, Normocephalic Neck: Normal Inspection Respiratory/Chest: Lungs Clear Cardiovascular: Regular Rate, Rhythm GI/Abdominal: Soft, Non-Tender Back Exam: Normal Inspection Extremities: Normal Inspection Neurological: Alert, Oriented Psychiatric: Normal Affect, Normal Mood Skin Exam: Warm, Dry, Rash (rug burn over left knee) Course - Vital Signs Last Recorded V/S: Last Vital Signs Temp 36.5 C 07/17/19 12:59 Pulse 70 07/17/19 12:59 Resp 12 07/17/19 12:59 BP 138/79 07/17/19 12:59 Pulse Ox 98 07/17/19 12:59 - Re-Assessments/Exams Free Text/Narrative Re-Assessment/Exam: 44 yo presents after mechanical fall from standing Concerned of some left knee pain, had superficial scrap here Patient declining xray, somewhat embarrassed she is here Will attempt ambulation, apap. If unable to do this will get imaging otherwise anticipate discharge with supportive care. 07/17/19 13:20 Departure - Departure Time of Disposition: 15:00 Disposition: Home, Self-Care 01 Clinical Impression: Knee pain, right Qualifiers: Chronicity: acute Qualified Code(s): M25.561 - Pain in right knee - Discharge Information Referrals: PCP,None [Primary Care Provider] - Forms: ED Department Discharge Additional Instructions: Please take tylenol and ibuprofen for pain in your knee. Return to the ER for worsening.
== END 2019-07-17 15:33 | disposition home or self-care (01) ==
LOC: JP.ED 12:46
DX: M25.561 Pain in right knee (principal); F32.9 Major depressive disorder, single episode, unspecified; E66.9 Obesity, unspecified; E03.9 Hypothyroidism, unspecified; Z79.899 Other long term (current) drug therapy; W01.10XA Fall on same level from slipping, tripping and stumbling with subsequent striking against unspecified object, initial encounter; Y92.89 Other specified places as the place of occurrence of the external cause; Y99.0 Civilian activity done for income or pay
CPT/HCPCS: 99283

== ENCOUNTER 2020-01-02 14:29 | Emergency (ER) | payer MEDICARE, MEDICAID ==
[2020-01-02 14:48] VITALS: BP 134/76; PULSE 103
[2020-01-02] MEDS ORDERED: Acetaminophen/HYDROcodone 325-5 MG Tab PO ONE (15:11)
--- NOTE | 2020-01-02 15:18 | EDM.PDOC ---
ED HPI GENERAL MEDICAL PROBLEM - General Chief Complaint: General Stated Complaint: L NIPPLE/BREAST PAIN Time Seen by Provider: 01/02/20 15:05 Source of Information: Reports: Patient, Old Records, RN History Limitations: Reports: No Limitations - History of Present Illness INITIAL COMMENTS - FREE TEXT/NARRATIVE: 44 yo female patient of Dr. Medeiros'carlotta presents with R breast tenderness. Recently had a breast biopsy for some microcalcifications noted on mammography. Now over the past few days the pain in the breast around the areola and nipple is much more noticeable. She tried unsuccessfully to reach Dr. Medeiros on Saturday so is here now. No fever or redness noted. 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 ENRICHMENT DIRECTOR: Reports: Other (see below) (none) Right Breast Pain Score (Numeric/FACES): 10 - Related Data Allergies Allergy/AdvReac Type Severity Reaction Status Date / Time No Known Allergies Allergy Verified 01/02/20 14:56 Home Meds: Home Meds Citalopram [Citalopram Hbr] 40 mg PO BEDTIME 12/30/13 [History] Levothyroxine [Synthroid] 50 mcg PO BEDTIME 12/30/13 [History] PHENobarbitaL [PHENobarbital] 97.2 mg PO BEDTIME 12/30/13 [History] Phenytoin Sodium Extended [Dilantin] 230 mg PO BEDTIME 12/30/13 [History] Multi-Vitamin 1 tab PO BEDTIME 02/28/15 [History] Acetaminophen/HYDROcodone [Park 325-5 MG] 1 - 2 tab PO Q6H PRN #14 tab [Rx] Past Medical History HEENT History: Reports: Impaired Vision FENCE MAKER History: Reports: Other (See Below) Other FENCE MAKER History: 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 Neurological History: Reports: Seizure Other Neuro History: epilepsy Psychiatric History: Reports: Depression Endocrine/Metabolic History: Reports: Hypothyroidism, Obesity/BMI 30+ - Infectious Disease History Infectious Disease History: Reports: Chicken Pox, Measles, Mumps - Past Surgical History GI Surgical History: Reports: Appendectomy Female Surgical History: Reports: Hysterectomy Musculoskeletal Surgical History: Reports: Other (See Below) Other Musculoskeletal Surgeries/Procedures:: bone spurs removed bilateral feet Social & Family History - Family History Family Medical History: Noncontributory - Tobacco Use Smoking Status *Q: Never Smoker Second Hand Smoke Exposure: No - Caffeine Use Caffeine Use: Reports: Soda - Recreational Drug Use Recreational Drug Use: No - Living Situation & Occupation Living situation: Reports: Single Occupation: Employed ED ROS GENERAL - Review of Systems Review Of Systems: See Below Constitutional: Reports: No Symptoms Musculoskeletal: Reports: No Symptoms Skin: Reports: No Symptoms Neurological: Reports: No Symptoms Free Text/Narrative/Comment: R breast tenderness, amna around the areola and nipple. No drainage. ED EXAM, GENERAL - Physical Exam Exam: See Below Exam Limited By: No Limitations General Appearance: Alert, WD/WN, No Apparent Distress, Obese Respiratory/Chest: Other (R breast is grossly normal. No redness and no nipple discharge evident. ). No: No Respiratory Distress, No Accessory Muscle Use Cardiovascular: Regular Rate, Rhythm, No Edema Extremities: Normal Inspection Neurological: Alert, Oriented, CN II-XII Intact, Normal Cognition, No Motor/ Sensory Deficits Psychiatric: Normal Affect, Normal Mood, Anxious Skin Exam: Warm, Dry, Normal Color, No Rash Course - Vital Signs Last Recorded V/S: Last Vital Signs Temp 37.4 C 01/02/20 15:02 Pulse 103 H 01/02/20 15:02 Resp 16 01/02/20 15:02 BP 134/76 01/02/20 15:02 Pulse Ox 96 01/02/20 15:02 - Orders/Labs/Meds Meds: Medications Discontinued Medications Generic Name Dose Route Start Last Admin Trade Name Freq PRN Reason Stop Dose Admin Hydrocodone Bitart/Acetaminophen 1 tab 01/02/20 15:11 Park 325-5 Mg PO 01/02/20 15:12 ONETIME ONE Departure - Departure Time of Disposition: 15:25 Disposition: Home, Self-Care 01 Condition: Fair Clinical Impression: Breast tenderness in female - Discharge Information *PRESCRIPTION DRUG MONITORING PROGRAM REVIEWED*: No *COPY OF PRESCRIPTION DRUG MONITORING REPORT IN PATIENT ROBLES: No Prescriptions: Acetaminophen/HYDROcodone [Park 325-5 MG] 1 - 2 tab PO Q6H PRN #14 tab PRN Reason: Pain Instructions: Breast Tenderness Referrals: PCP,None [Primary Care Provider] - Additional Instructions: Take Park as directed for pain relief. Add ibuprofen 600 mg every 6 hrs with food for added relief. Recheck with Dr. Medeiros on Saturday. Sepsis Event Note - Evaluation Sepsis Screening Result: No Definite Risk - Focused Exam Vital Signs: Vital Signs Temp Pulse Resp BP Pulse Ox 01/02/20 15:02 37.4 C 103 H 16 134/76 96 01/02/20 14:47 37.4 C 103 H 16 134/76 96 Date Exam was Performed: 01/02/20 Time Exam was Performed: 15:13
== END 2020-01-02 15:33 | disposition home or self-care (01) ==
LOC: JP.ED 14:29
DX: N64.4 Mastodynia (principal); F32.9 Major depressive disorder, single episode, unspecified; E03.9 Hypothyroidism, unspecified; E66.9 Obesity, unspecified; R56.9 Unspecified convulsions; Z68.42 Body mass index [BMI] 45.0-49.9, adult
CPT/HCPCS: 99283; A9270

== ENCOUNTER 2020-03-14 22:35 | Emergency (ER) | payer MEDICARE, MEDICAID ==
[2020-03-14] MEDS ORDERED: Sodium Chloride 0.9% 1,000 ML IV STA (22:38)
--- NOTE | 2020-03-14 22:47 | EDM.PDOC ---
ED HPI GENERAL MEDICAL PROBLEM - General Chief Complaint: General Stated Complaint: MEDICAL VIA [facility]TH Time Seen by Provider: 03/14/20 23:30 History Limitations: Reports: No Limitations - History of Present Illness INITIAL COMMENTS - FREE TEXT/NARRATIVE: 44 years old female patient brought in by ambulance with a chief complaint of dizziness. Stated that she was fishing with her friend today then in her way back home she started feeling dizzy. Described as everything spinning, felt nauseated and vomited once. She pulled over and called EMS to bring her in. She was given 4 mg IV Zofran by EMS. Denies any headache, neck pain or back pain. Denies any seizure activity. Denies any chest pain or shortness breath. Denies any cough or fever. Denies any abdominal pain diarrhea or constipation. Denies any urinary symptom. Denies any focal weakness or numbness anywhere. She loss control of her urine. denies Pain Score (Numeric/FACES): 0 - Related Data Allergies Allergy/AdvReac Type Severity Reaction Status Date / Time No Known Allergies Allergy Verified 01/02/20 14:56 Home Meds: Home Meds Citalopram [Citalopram Hbr] 40 mg PO BEDTIME 12/30/13 [History] Levothyroxine [Synthroid] 50 mcg PO BEDTIME 12/30/13 [History] PHENobarbitaL [PHENobarbital] 97.2 mg PO BEDTIME 12/30/13 [History] Phenytoin Sodium Extended [Dilantin] 230 mg PO BEDTIME 12/30/13 [History] Multi-Vitamin 1 tab PO BEDTIME 02/28/15 [History] Past Medical History HEENT History: Reports: Impaired Vision AVAYA ENGINEER History: Reports: Other (See Below) Other AVAYA ENGINEER History: 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 Neurological History: Reports: Seizure Other Neuro History: epilepsy Psychiatric History: Reports: Depression Endocrine/Metabolic History: Reports: Hypothyroidism, Obesity/BMI 30+ - Infectious Disease History Infectious Disease History: Reports: Chicken Pox, Measles, Mumps - Past Surgical History GI Surgical History: Reports: Appendectomy Female Surgical History: Reports: Hysterectomy Musculoskeletal Surgical History: Reports: Other (See Below) Other Musculoskeletal Surgeries/Procedures:: bone spurs removed bilateral feet Social & Family History - Family History Family Medical History: Noncontributory - Caffeine Use Caffeine Use: Reports: Soda - Living Situation & Occupation Living situation: Reports: Single Occupation: Employed ED ROS GENERAL - Review of Systems Review Of Systems: Comprehensive ROS is negative, except as noted in HPI. ED EXAM, GENERAL - Physical Exam Exam: See Below Exam Limited By: No Limitations General Appearance: Alert, WD/WN, No Apparent Distress Ears: Normal External Exam, Hearing Grossly Normal Ear Exam: Bilateral Ear: Auricle Normal, Canal Normal, TM normal Nose: Normal Inspection, Normal Mucosa, No Blood Throat/Mouth: Normal Inspection, Normal Lips, Normal Teeth, Normal Gums, Normal Oropharynx, Normal Voice, No Airway Compromise Head: Atraumatic, Normocephalic Neck: Normal Inspection, Supple, Non-Tender, Full Range of Motion Respiratory/Chest: No Respiratory Distress, Lungs Clear, Normal Breath Sounds, No Accessory Muscle Use, Chest Non-Tender Cardiovascular: Normal Peripheral Pulses, Regular Rate, Rhythm, No Edema, No Gallop, No JVD, No Murmur, No Rub GI/Abdominal: Normal Bowel Sounds, Soft, Non-Tender, No Organomegaly, No Distention, No Abnormal Bruit, No Mass Extremities: Normal Inspection, Normal Range of Motion, Non-Tender, Normal Capillary Refill, No Pedal Edema Neurological: Alert, Oriented, CN II-XII Intact, Normal Cognition, Normal Reflexes, No Motor/Sensory Deficits. No: Sensory/Motor Deficit Psychiatric: Normal Affect, Normal Mood Course - Vital Signs Last Recorded V/S: Last Vital Signs Temp 35.5 C L 03/14/20 23:52 Pulse 78 03/14/20 23:52 Resp 18 03/14/20 23:52 BP 131/72 03/14/20 23:52 Pulse Ox 98 03/14/20 23:52 - Orders/Labs/Meds Orders: Active Orders 24 hr Category Date Time Status EKG Documentation Completion [RC] ASDIRECTED Care 03/14/20 22:49 Active UA W/MICROSCOPIC [URIN] Urgent Lab 03/15/20 00:08 Ordered EKG 12 Lead [EK] Urgent Ther 03/14/20 22:49 Ordered Labs: Laboratory Tests 03/14/20 03/14/20 Range/Units 23:00 23:00 WBC 6.3 (4.5-11.0) K/uL RBC 4.32 (3.30-5.50) M/uL Hgb 12.1 (12.0-15.0) g/dL Hct 37.4 (36.0-48.0) % MCV 87 (80-98) fL MCH 28 (27-31) pg MCHC 32 (32-36) % Plt Count 370 (150-400) K/uL Neut % (Auto) 56 (36-66) % Lymph % (Auto) 30 (24-44) % [place] % (Auto) 15 H (2-6) % Eos % (Auto) 0 L (2-4) % Baso % (Auto) 0 (0-1) % Sodium 140 (140-148) mmol/L Potassium 4.1 (3.6-5.2) mmol/L Chloride 105 (100-108) mmol/L Carbon Dioxide 25 (21-32) mmol/L Anion Gap 10.0 (5.0-14.0) mmol/L BUN 18 D (7-18) mg/dL Creatinine 0.8 (0.6-1.0) mg/dL Est Cr Clr Drug Dosing TNP Estimated GFR (MDRD) > 60 (>60) Glucose 98 (74-106) mg/dL Calcium 8.1 L (8.5-10.1) mg/dL Troponin I < 0.017 (0.000-0.056) ng/mL Meds: Medications Discontinued Medications Generic Name Dose Route Start Last Admin Trade Name Freq PRN Reason Stop Dose Admin Sodium Chloride 1,000 mls @ 999 mls/hr 03/14/20 22:38 03/14/20 23:11 Normal Saline IV 03/14/20 23:38 999 mls/hr .BOLUS STA Administration Meclizine HCl 25 mg 03/14/20 22:50 03/14/20 23:11 Antivert PO 03/14/20 22:51 25 mg ONETIME ONE Administration - Re-Assessments/Exams Free Text/Narrative Re-Assessment/Exam: 03/14/20 23:34 Patient was seen and examined shortly after arrival. Stable. On engine monitor. Given 1 L normal saline bolus, 25 mg oral meclizine, lab and imaging reviewed with the patient. No significant acute abnormalities. This is most likely per ipheral vertigo. Unlikely CVA. Symptom improved however she is still unstable in her feet when she walked. Case was discussed with Dr. Zaman hospitalist semi conductor assembler and he accepted the admission for further management. Patient agrees with the plan. Stable for admission. 03/15/20 00:37 Departure - Departure Time of Disposition: 00:25 Disposition: Refer to Observation Condition: Good Clinical Impression: Vertigo - Discharge Information Referrals: PCP,None [Primary Care Provider] - Forms: ED Department Discharge Sepsis Event Note (ED) - Focused Exam Vital Signs: Vital Signs Temp Pulse Resp BP Pulse Ox 03/14/20 23:52 35.5 C L 78 18 131/72 98 03/14/20 23:45 35.5 C L 78 18 131/72 98 03/14/20 22:35 115/64 - My Orders Last 24 Hours: My Active Orders 03/14/20 22:49 EKG Documentation Completion [RC] ASDIRECTED EKG 12 Lead [EK] Urgent 03/15/20 00:08 UA W/MICROSCOPIC [URIN] Urgent - Assessment/Plan Last 24 Hours: My Active Orders 03/14/20 22:49 EKG Documentation Completion [RC] ASDIRECTED EKG 12 Lead [EK] Urgent 03/15/20 00:08 UA W/MICROSCOPIC [URIN] Urgent Plan: Admission for Dr. Zaman
[2020-03-14] MEDS ORDERED: Meclizine 25 MG Tab PO ONE (22:50)
[2020-03-14 23:47] VITALS: BP 131/72; PULSE 78
--- NOTE | 2020-03-15 00:02 | CRLCT ---
DATE: 03/15/2020 CLINICAL HISTORY: Patient with dizziness. TECHNIQUE: Standard CT scanning of the head was performed. COMPARISON: None. FINDINGS: There is no intracranial hemorrhage. There is no territorial infarction. There is an old lacunar infarction in the left caudate head. There are mild microangiopathic changes. There is diffuse parenchymal volume loss, more pronounced in the cerebellar hemispheres. There is no mass effect or midline shift. The calvarium is unremarkable. The orbits are unremarkable. The paranasal sinuses demonstrate minimal sphenoid sinus disease. The mastoid air cells are unremarkable. The soft tissues are unremarkable. IMPRESSION: 1. No intracranial hemorrhage or territorial infarction. 2. Old lacunar infarction in the left caudate head. 3. Mild microangiopathic changes and diffuse parenchymal volume loss, more pronounced in the cerebellar hemispheres. Please note that all CT scans at this facility use dose modulation, iterative reconstruction, and/or weight-based dosing when appropriate to reduce radiation dose to as low as reasonably achievable. Dictated by Paul Bearden MD @ Mar 15 2020 12:13AM Signed by Dr. Paul Bearden @ Mar 15 2020 12:17AM
--- NOTE | 2020-03-15 01:14 | PCM.CONS ---
H&P History of Present Illness - General Date of Service: 03/15/20 Source of Information: Patient, Provider History Limitations: Reports: No Limitations - History of Present Illness Initial Comments - Free Text/Narative: CC: I was spinning so bad HPI: Margarita presented to the emergency room tonight with dizziness. I was asked to see her by Dr. Zamora regarding potential hospital admission. She reports sudden onset of dizziness after she got done fishing and got in her car. She describes the dizziness as a spinning sensation. She did not have a headache. She did have some difficulty with the patient because of the spi nning. 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 She had nausea as well as vomiting. She is had a history of similar episodes and has previously seen physical therapy. She has felt well recently with no fevers or chills. No recent medication changes. No recent seizures. She thinks she has been eating and drinking okay. She is feeling better after a dose of meclizine and some IV fluids provided in the emergency room. She has been up and walking around. She feels safe going home at this time since her dizziness has completely resolved. denies Pain Score (Numeric/FACES): 0 - Related Data Allergies/Adverse Reactions: Allergies Allergy/AdvReac Type Severity Reaction Status Date / Time No Known Allergies Allergy Verified 01/02/20 14:56 Home Medications: Home Meds Citalopram [Citalopram Hbr] 40 mg PO BEDTIME 12/30/13 [History] Levothyroxine [Synthroid] 50 mcg PO BEDTIME 12/30/13 [History] PHENobarbitaL [PHENobarbital] 97.2 mg PO BEDTIME 12/30/13 [History] Phenytoin Sodium Extended [Dilantin] 230 mg PO BEDTIME 12/30/13 [History] Multi-Vitamin 1 tab PO BEDTIME 02/28/15 [History] Past Medical History HEENT History: Reports: Impaired Vision 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 (See Below) Other OB/BYN History: 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 Neurological History: Reports: Seizure Other Neuro History: epilepsy Psychiatric History: Reports: Depression Endocrine/Metabolic History: Reports: Hypothyroidism, Obesity/BMI 30+ - Infectious Disease History Infectious Disease History: Reports: Chicken Pox, Measles, Mumps - Past Surgical History GI Surgical History: Reports: Appendectomy Female Surgical History: Reports: Hysterectomy Musculoskeletal Surgical History: Reports: Other (See Below) Other Musculoskeletal Surgeries/Procedures:: bone spurs removed bilateral feet Social & Family History - Family History Family Medical History: Noncontributory - Tobacco Use Smoking Status *Q: Never Smoker Second Hand Smoke Exposure: No - Caffeine Use Caffeine Use: Reports: Soda - Recreational Drug Use Recreational Drug Use: No - Living Situation & Occupation Living situation: Reports: Single Occupation: Employed H&P Review of Systems - Review of Systems: Review Of Systems: See Below Free Text/Narrative: A complete 12 point review of systems was obtained. Pertinent positives and negatives are noted in the history of present illness. All other systems were reviewed and were negative except as noted. Exam - Exam Exam: See Below - Vital Signs Vital Signs: Last Vital Signs Temp 35.5 C L 03/14/20 23:52 Pulse 78 03/14/20 23:52 Resp 18 03/14/20 23:52 BP 131/72 03/14/20 23:52 Pulse Ox 98 03/14/20 23:52 Weight: 270 kg - Exam Quality Assessment: No: Supplemental Oxygen General: Alert, Oriented, Cooperative. No: Mild Distress HEENT: Conjunctiva Clear, Mucosa Moist & [place] Neck: Supple, Trachea Midline Lungs: Normal Respiratory Effort. No: Wheezing Cardiovascular: Regular Rate, Regular Rhythm GI/Abdominal Exam: Soft, No Distention Extremities: No Pedal Edema. No: Increased Warmth Skin: Warm, Dry Neuro Extensive - Mental Status: Alert, Oriented x3, Nl Response to Commands Neuro Extensive - Motor, Sensory, Reflexes: No: Dysarthria, Abnormal Motor, Tremor Psychiatric: Alert, Normal Affect - Patient Data Lab Results Last 24 hrs: Laboratory Results - last 24 hr 03/14/20 03/14/20 03/15/20 Range/Units 23:00 23:00 00:08 WBC 6.3 (4.5-11.0) K/uL RBC 4.32 (3.30-5.50) M/uL Hgb 12.1 (12.0-15.0) g/dL Hct 37.4 (36.0-48.0) % MCV 87 (80-98) fL MCH 28 (27-31) pg MCHC 32 (32-36) % Plt Count 370 (150-400) K/uL Neut % (Auto) 56 (36-66) % Lymph % (Auto) 30 (24-44) % Real % (Auto) 15 H (2-6) % Eos % (Auto) 0 L (2-4) % Baso % (Auto) 0 (0-1) % Sodium 140 (140-148) mmol/L Potassium 4.1 (3.6-5.2) mmol/L Chloride 105 (100-108) mmol/L Carbon Dioxide 25 (21-32) mmol/L Anion Gap 10.0 (5.0-14.0) mmol/L BUN 18 D (7-18) mg/dL Creatinine 0.8 (0.6-1.0) mg/dL Est Cr Clr Drug Dosing TNP Estimated GFR (MDRD) > 60 (>60) Glucose 98 (74-106) mg/dL Calcium 8.1 L (8.5-10.1) mg/dL Troponin I < 0.017 (0.000-0.056) ng/mL Urine Color Yellow (YELLOW) Urine Appearance Slightly cloudy A (CLEAR) Urine pH 5.5 (5.0-8.0) Ur Specific [place] >= 1.030 (1.008-1.030) Urine Protein Negative (NEGATIVE) mg/dL Urine Glucose (UA) Negative (NEGATIVE) mg/dL Urine Ketones Negative (NEGATIVE) mg/dL Urine Occult Blood Negative (NEGATIVE) Urine Nitrite Negative (NEGATIVE) Urine Bilirubin Negative (NEGATIVE) Urine Urobilinogen 0.2 (0.2-1.0) EU/dL Ur Leukocyte Esterase Negative (NEGATIVE) Urine RBC 0-5 (0-5) Urine WBC 0-5 (0-5) Ur Epithelial Cells Few Amorphous Sediment Few Urine Bacteria Few Urine Mucus Many Result Diagrams: 03/14/20 23:00 03/14/20 23:00 Imaging Impressions Last 24 hrs: Head CT-images personally reviewed-subtle changes with possible old stroke in the basal ganglia. May be some mild volume loss. No acute findings. Sepsis Event Note - Evaluation Sepsis Screening Result: No Definite Risk - Focused Exam Vital Signs: Vital Signs Temp Pulse Resp BP Pulse Ox 03/14/20 23:52 35.5 C L 78 18 131/72 98 03/14/20 23:45 35.5 C L 78 18 131/72 98 03/14/20 22:35 115/64 Date Exam was Performed: 03/15/20 Time Exam was Performed: 01:18 Consult PN Assessment/Plan Procedures: Procedures ASSAY THYROID STIM HORMONE (03/28/17) BREAST TOMOSYNTHESIS BI (11/09/19) BX BREAST 1ST LESION STRTCTC (11/30/19) C-REACTIVE PROTEIN (11/22/18) COMPLETE CBC W/AUTO DIFF WBC (11/22/18) COMPREHEN METABOLIC PANEL (11/22/18) CT ABD & PELV W/CONTRAST (11/22/18) DRUG TEST PRSMV DIR OPT OBS (03/28/17) DX MAMMO INCL CAD UNI (11/30/19) ELECTROCARDIOGRAM TRACING (06/14/18) EMERGENCY DEPT VISIT (01/02/20) EMERGENCY DEPT VISIT (11/22/18) EMERGENCY DEPT VISIT (09/08/17) EMERGENCY DEPT VISIT (03/28/17) EMERGENCY DEPT VISIT (05/20/14) EMERGENCY DEPT VISIT (12/30/13) HOT OR COLD PACKS THERAPY (05/02/17) HYDRATE IV INFUSION ADD-ON (11/22/18) MANUAL THERAPY 1/> REGIONS (11/26/19) METABOLIC PANEL TOTAL CA (12/30/13) MRI LOWER EXTREMITY W/O DYE (05/11/15) ORTHOTIC MGMT&TRAING 1ST ENC (11/16/14) OT EVALUATION (01/20/15) PARAFFIN BATH THERAPY (11/16/14) PT EVAL LOW COMPLEX 20 MIN (02/17/18) PT EVAL MOD COMPLEX 30 MIN (11/04/19) PT EVALUATION (02/23/15) ROUTINE VENIPUNCTURE (11/22/18) SCR MAMMO BI INCL CAD (11/09/19) SELF CARE MNGMENT TRAINING (06/07/15) THER/PROPH/DIAG INJ IV PUSH (11/22/18) THER/PROPH/DIAG INJ SC/IM (11/22/18) THERAPEUTIC EXERCISES (12/25/16) TISSUE EXAM BY PATHOLOGIST (11/30/19) ULTRASOUND THERAPY (11/26/19) URINALYSIS AUTO W/SCOPE (11/22/18) URINE CULTURE/COLONY COUNT (11/22/18) URINE TEST (03/28/17) X-RAY EXAM OF KNEE 3 (02/08/16) X-RAY EXAM OF LOWER LEG (02/08/16) Problem List Initiated/Reviewed/Updated: Yes Plan: ASSESSMENT AND PLAN - Dizziness-history of similar. She believes these episodes are provoked by changing from hot to cold or vice versa. This provoked the episode today. Symptoms have completely resolved after some IV fluids and a dose of meclizine. She has been up and walking around. Labs are normal. Head CT with no acute findings. She feels well and would like to go home. She has somebody to come get her. I do believe she is safe for outpatient management at this time. She will be following up with Dr Robert Medeiros if she has symptoms that return or if they do not continue to get better. Seizure disorder-no recent seizures. No issues at this time. Patient will be discharged home with a friend. She will be taking her bedtime medications when she gets home. Edison Zaman MD Requesting Provider: Dr Zamora Date Consult Requested: 03/15/20 Reason for Consult: Dizziness Patient History Reviewed: Yes Admission H&P Reviewed: No Notified Requestor: Yes Time Spent (in minutes): 45
== END 2020-03-15 01:23 | disposition home or self-care (01) ==
LOC: JP.ED 22:35
DX: R42 Dizziness and giddiness (principal); F32.9 Major depressive disorder, single episode, unspecified; E03.9 Hypothyroidism, unspecified; E66.9 Obesity, unspecified; G40.909 Epilepsy, unspecified, not intractable, without status epilepticus; Z68.45 Body mass index [BMI] 70 or greater, adult
CPT/HCPCS: 36415; 70450; 80048; 81001; 84484; 85025; 93005; 96360; 99285; A9270; J7030; 93010; 99282

== ENCOUNTER 2020-08-15 17:03 | Emergency (ER) | payer MEDICARE, MEDICAID ==
--- NOTE | 2020-08-15 17:26 | EDM.PDOC ---
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 and then decided to stop at [employer] in order to get a drink before leaving when she started feeling weak and unsure of her step she did sit down with some assistance from passer Lambert she states that she was recommended then to come to the emergency room for further evaluation patient is a poor historian she does have a known seizure disorder denies missing any doses of of her medications no complaints otherwise Medical history and medications as reviewed per nursing intake - Related Data Allergies Allergy/AdvReac Type Severity Reaction Status Date / Time No Known Allergies Allergy Verified 08/15/20 17:54 Home Meds: Home Meds Citalopram [Citalopram Hbr] 40 mg PO BEDTIME 12/30/13 [History] Levothyroxine [Synthroid] 50 mcg PO BEDTIME 12/30/13 [History] PHENobarbitaL [PHENobarbital] 97.2 mg PO BEDTIME 12/30/13 [History] Phenytoin Sodium Extended [Dilantin] 230 mg PO BEDTIME 12/30/13 [History] Multi-Vitamin 1 tab PO BEDTIME 02/28/15 [History] Past Medical History HEENT History: Reports: Impaired Vision 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 WIRER 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: 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 Neurological History: Reports: Seizure Other Neuro History: epilepsy Psychiatric History: Reports: Depression Endocrine/Metabolic History: Reports: Hypothyroidism, Obesity/BMI 30+ - Infectious Disease History Infectious Disease History: Reports: Chicken Pox, Measles, Mumps - Past Surgical History GI Surgical History: Reports: Appendectomy Female Surgical History: Reports: Hysterectomy Musculoskeletal Surgical History: Reports: Other (See Below) Other Musculoskeletal Surgeries/Procedures:: bone spurs removed bilateral feet Social & Family History - Family History Family Medical History: No Pertinent Family History - Caffeine Use Caffeine Use: Reports: Soda - Living Situation & Occupation Living situation: Reports: Single Occupation: Employed ED ROS GENERAL - Review of Systems Review Of Systems: Comprehensive ROS is negative, except as noted in HPI. (Somewhat limited secondary to patient being a poor historian) Constitutional: Reports: No Symptoms Respiratory: Reports: No Symptoms Cardiovascular: Reports: No Symptoms GI/Abdominal: Reports: No Symptoms : Reports: No Symptoms Musculoskeletal: Reports: No Symptoms Skin: Reports: No Symptoms Neurological: Reports: Weakness Psychiatric: Reports: No Symptoms Hematologic/Lymphatic: Reports: No Symptoms Immunologic: Reports: No Symptoms ED EXAM, GENERAL - Physical Exam Exam: See Below Exam Limited By: No Limitations General Appearance: Alert, No Apparent Distress, Obese, Other (Patient is slow in her cognition and speech her speech is understandable without any slurring) Eye Exam: Bilateral Eye: EOMI, Normal Inspection, PERRL (4-5mm) Ears: Normal External Exam, Normal Canal, Hearing Grossly Normal, Normal TMs Nose: Normal Inspection, Normal Mucosa, No Blood Throat/Mouth: Normal Inspection, Normal Lips, Normal Teeth, Normal Oropharynx, Normal Voice Head: Atraumatic, Normocephalic Neck: Normal Inspection, Supple, Non-Tender, Full Range of Motion Respiratory/Chest: No Respiratory Distress, Lungs Clear, Normal Breath Sounds, No Accessory Muscle Use, Chest Non-Tender Cardiovascular: Normal Peripheral Pulses, Regular Rate, Rhythm, No Edema, No Mu rmur Peripheral Pulses: 2+: Radial (L), Radial (R) GI/Abdominal: Normal Bowel Sounds, Soft, Non-Tender, Other (Patient is morbidly obese) (Female) Exam: Deferred Rectal (Female) Exam: Deferred Back Exam: Normal Inspection Extremities: Normal Inspection, Normal Range of Motion, Non-Tender, No Pedal Edema, Normal Capillary Refill Neurological: Alert, Oriented, CN II-XII Intact, No Motor/Sensory Deficits Psychiatric: Normal Affect, Normal Mood Skin Exam: Warm, Dry, Intact, Normal Color #1 Interpretation EKG Date: 08/15/20 Time: 17:48 (read at 1752 no STEMI) Rhythm: NSR Rate (Beats/Min): 64 [place]: Normal P-Wave: Present (MD-133) QRS: Normal (QRS-96) ST-T: Normal QT: Normal (QT/QTc-420/434) EKG Interpretation Comments: normal EKG Course - Vital Signs Text/Narrative:: 1817--no acute findings of concern on labs/rad; has pending UA--patient up to BR at this time for collection. She reports she is feeling markedly improved 1850--no evidence of UTI, urine sent for culture thus will only recommend treatment if culture returns abnormal. ready for d/c at this time Last Recorded V/S: Last Vital Signs Temp 97.0 F 08/15/20 17:55 Pulse 72 08/15/20 18:10 Resp 19 08/15/20 18:10 BP 129/64 08/15/20 18:10 Pulse Ox 99 08/15/20 18:10 - Orders/Labs/Meds Orders: Active Orders 24 hr Category Date Time Status Cardiac Monitoring [RC] .As Directed Care 08/15/20 17:20 Active EKG Documentation Completion [RC] ASDIRECTED Care 08/15/20 17:20 Active CULTURE URINE [RM] Stat Lab 08/15/20 18:51 Ordered EKG 12 Lead [EK] Routine Ther 08/15/20 17:20 Ordered Labs: Laboratory Tests 08/15/20 08/15/20 08/15/20 Range/Units 17:34 17:34 18:20 WBC 4.2 L (4.5-11.0) K/uL RBC 4.67 (3.30-5.50) M/uL Hgb 12.1 (12.0-15.0) g/dL Hct 39.0 (36.0-48.0) % MCV 84 (80-98) fL MCH 26 L (27-31) pg MCHC 31 L (32-36) % Plt Count 420 H (150-400) K/uL Neut % (Auto) 43 (36-66) % Lymph % (Auto) 44 (24-44) % Pender % (Auto) 13 H (2-6) % Eos % (Auto) 0 L (2-4) % Baso % (Auto) 0 (0-1) % Sodium 137 L (140-148) mmol/L Potassium 4.3 (3.6-5.2) mmol/L Chloride 101 (100-108) mmol/L Carbon Dioxide 26 (21-32) mmol/L Anion Gap 14.3 H (5.0-14.0) mmol/L BUN 11 (7-18) mg/dL Creatinine 0.8 (0.6-1.0) mg/dL Est Cr Clr Drug Dosing 69.50 mL/min Estimated GFR (MDRD) > 60 (>60) Glucose 85 (74-106) mg/dL Calcium 8.2 L (8.5-10.1) mg/dL Total Bilirubin 0.2 (0.2-1.0) mg/dL AST 20 (15-37) U/L ALT 33 (12-78) U/L Alkaline Phosphatase 158 H (46-116) U/L Total Protein 7.2 (6.4-8.2) g/dL Albumin 3.5 (3.4-5.0) g/dL Globulin 3.7 H (2.3-3.5) g/dL Albumin/Globulin Ratio 1.0 L (1.2-2.2) Urine Color Yellow (YELLOW) Urine Appearance Cloudy A (CLEAR) Urine pH 5.5 (5.0-8.0) Ur Specific [place] >= 1.030 (1.008-1.030) Urine Protein Negative (NEGATIVE) mg/dL Urine Glucose (UA) Negative (NEGATIVE) mg/dL Urine Ketones Negative (NEGATIVE) mg/dL Urine Occult Blood Negative (NEGATIVE) Urine Nitrite Negative (NEGATIVE) Urine Bilirubin Small H (NEGATIVE) Urine Urobilinogen 0.2 (0.2-1.0) EU/dL Ur Leukocyte Esterase Negative (NEGATIVE) Urine RBC 0-5 (0-5) Urine WBC 5-10 H (0-5) Ur Epithelial Cells Many Amorphous Sediment Not seen Urine Bacteria Many Urine Mucus Many Departure - Departure Time of Disposition: 18:52 Disposition: Home, Self-Care 01 Clinical Impression: Near syncope - Discharge Information *PRESCRIPTION DRUG MONITORING PROGRAM REVIEWED*: Not Applicable *COPY OF PRESCRIPTION DRUG MONITORING REPORT IN PATIENT ROBLES: Not Applicable Instructions: Near-Syncope, [id number] Referrals: PCP,None [Primary Care Provider] - Forms: ED Department Discharge Sepsis Event Note (ED) - Focused Exam Vital Signs: Vital Signs Temp Pulse Resp BP Pulse Ox 08/15/20 18:10 72 19 129/64 99 08/15/20 17:55 97.0 F 73 16 117/62 97 08/15/20 17:46 76 18 130/75 99 08/15/20 17:08 97.0 F 73 16 117/62 97 - My Orders Last 24 Hours: My Active Orders 08/15/20 17:20 Cardiac Monitoring [RC] .As Directed EKG Documentation Completion [RC] ASDIRECTED EKG 12 Lead [EK] Routine 08/15/20 18:51 CULTURE URINE [RM] Stat - Assessment/Plan Last 24 Hours: My Active Orders 08/15/20 17:20 Cardiac Monitoring [RC] .As Directed EKG Documentation Completion [RC] ASDIRECTED EKG 12 Lead [EK] Routine 08/15/20 18:51 CULTURE URINE [RM] Stat
[2020-08-15 18:11] VITALS: BP 129/64; PULSE 72
--- NOTE | 2020-08-15 18:17 | CRLCT ---
INDICATION: Near-syncope TECHNIQUE: CT head without contrast. COMPARISON: 03/14/2020 FINDINGS: Again seen is cerebellar atrophy for age. The ventricles are within normal limits. There is no mass effect or midline shift. A low-attenuation focus is again seen adjacent to the anterior left frontal horn and left caudate nucleus, nonspecific in a patient of this age. There is no loss of dawkins-white differentiation. There is no evidence of an acute intracranial hemorrhage. No acute calvarial fracture is seen. There is mild mucosal thickening in the left sphenoid sinus and a small mucosal retention cyst or polyp in the posterior right ethmoid sinus. The mastoid air cells are clear. The visualized orbits are within normal limits. IMPRESSION: Stable appearance of the brain. No evidence of an acute intracranial hemorrhage, mass effect or loss of dawkins-white differentiation. Dictated by Marin Swartz MD @ 08/15/2020 6:15:14 PM Please note that all CT scans at this facility use dose modulation, iterative reconstruction, and/or weight-based dosing when appropriate to reduce radiation dose to as low as reasonably achievable. Dictated by: Marin Swartz MD @ 08/15/2020 18:15:25 (Electronically Signed)
== END 2020-08-15 19:09 | disposition home or self-care (01) ==
LOC: JP.ED 17:03
DX: R55 Syncope and collapse (principal); G40.909 Epilepsy, unspecified, not intractable, without status epilepticus; F32.9 Major depressive disorder, single episode, unspecified; E03.9 Hypothyroidism, unspecified; E66.9 Obesity, unspecified; Z68.42 Body mass index [BMI] 45.0-49.9, adult
CPT/HCPCS: 36415; 70450; 80053; 81001; 85025; 87086; 93005; 93010; 99283; 99285-25

== ENCOUNTER 2020-10-24 16:10 | Emergency (ER) | payer MEDICARE, MEDICAID ==
[2020-10-24 16:17] VITALS: BP 139/90
[2020-10-24 16:24] VITALS: PULSE 75
--- NOTE | 2020-10-24 17:46 | EDM.PDOC ---
ED HPI GENERAL MEDICAL PROBLEM - General Chief Complaint: Neurological Problem Stated Complaint: MEDICAL VIA NORTH Time Seen by Provider: 10/24/20 16:50 Source of Information: Reports: Patient, EMS, Old Records, RN History Limitations: Reports: No Limitations - History of Present Illness INITIAL COMMENTS - FREE TEXT/NARRATIVE: 45 yo female was in a grocery store locally and felt light-headed with the room spinning. EMS was called and transported with stable vitals. Had no nausea or diaphoresis. Normal EKG per EMS. Has gained a lot of weight since Covid. Onset: Today, Sudden Onset Date: 10/24/20 Duration: Minutes:, Improving Location: Reports: Generalized Quality: Reports: Dull (transient upper sternal pain. ) Severity: Mild Improves with: Reports: Other (time) Worsens with: Reports: Other (unsure) Context: Reports: Other (See HPI) Associated Symptoms: Reports: No Other Symptoms. Denies: Seizure (has a hx of seizures, not today. ) Treatments REGISTERED ASSOCIATE: Reports: Other (see below) (none) - Related Data Allergies Allergy/AdvReac Type Severity Reaction Status Date / Time No Known Allergies Allergy Verified 08/15/20 17:54 Home Meds: Home Meds Citalopram [Citalopram Hbr] 40 mg PO BEDTIME 12/30/13 [History] Levothyroxine [Synthroid] 50 mcg PO BEDTIME 12/30/13 [History] PHENobarbitaL [PHENobarbital] 97.2 mg PO BEDTIME 12/30/13 [History] Phenytoin Sodium Extended [Dilantin] 230 mg PO BEDTIME 12/30/13 [History] Multi-Vitamin 1 tab PO BEDTIME 02/28/15 [History] Past Medical History HEENT History: Reports: Impaired Vision 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 STEEL CUTTER 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 Neurological History: Reports: Seizure Other Neuro History: epilepsy Psychiatric History: Reports: Depression Endocrine/Metabolic History: Reports: Hypothyroidism, Obesity/BMI 30+ - Infectious Disease History Infectious Disease History: Reports: Chicken Pox, Measles, Mumps - Past Surgical History GI Surgical History: Reports: Appendectomy Female Surgical History: Reports: Hysterectomy Musculoskeletal Surgical History: Reports: Other (See Below) Other Musculoskeletal Surgeries/Procedures:: bone spurs removed bilateral feet Social & Family History - Family History Family Medical History: No Pertinent Family History - Tobacco Use Tobacco Use Status *Q: Never Tobacco User - Caffeine Use Caffeine Use: Reports: Soda Other Caffeine Use: frozen hot chocolate once in a while - Recreational Drug Use Recreational Drug Use: No - Living Situation & Occupation Living situation: Reports: Single Occupation: Employed ED ROS GENERAL - Review of Systems Review Of Systems: See Below Constitutional: Reports: No Symptoms HEENT: Reports: No Symptoms Respiratory: Reports: Shortness of Breath (transient) Cardiovascular: Reports: Lightheadedness GI/Abdominal: Reports: No Symptoms : Reports: No Symptoms Musculoskeletal: Reports: No Symptoms Skin: Reports: No Symptoms Neurological: Reports: Dizziness, Numbness (transient of fingers). Denies: Seizure, Syncope Psychiatric: Reports: No Symptoms ED EXAM, NEURO - Physical Exam Exam: See Below Exam Limited By: No Limitations General Appearance: Alert, WD/WN, No Apparent Distress, Obese Eye Exam: Bilateral Eye: EOMI, Normal Inspection, PERRL Ears: Normal External Exam, Normal Canal, Hearing Grossly Normal Nose: Normal Inspection, No Blood Throat/Mouth: Normal Inspection, Normal Lips, Normal Oropharynx, Normal Voice, No Airway Compromise Head Exam: Atraumatic, Normocephalic Neck: Normal Inspection Respiratory/Chest: No Respiratory Distress, Lungs Clear, Normal Breath Sounds, No Accessory Muscle Use Cardiovascular: Regular Rate, Rhythm, No Edema GI/Abdominal: Normal Bowel Sounds, Soft, Non-Tender, No Distention Neurological: Alert, Normal Mood/Affect, CN II-XII Intact, No Motor/Sensory Deficits, Oriented x 3 Back Exam: Normal Inspection. No: CVA Tenderness (R), CVA Tenderness (L) Extremities: Normal Inspection, Normal Range of Motion, Non-Tender, No Pedal Edema. No: Pedal Edema Psychiatric: Normal Affect, Normal Mood Skin Exam: Warm, Dry, Intact, Normal Color, No Rash Course - Vital Signs Last Recorded V/S: Last Vital Signs Temp 36.8 C 10/24/20 16:17 Pulse 75 10/24/20 16:24 Resp 20 10/24/20 16:24 BP 139/90 10/24/20 16:24 Pulse Ox 99 10/24/20 16:17 Orthostatic Blood Pressure [ 150/82 Standing] Orthostatic Blood Pressure [ 135/90 Sitting] Orthostatic Blood Pressure [ 139/90 Supine] - Orders/Labs/Meds Orders: Active Orders 24 hr Category Date Time Status Orthostatic Vital Signs [RC] ASDIRECTED Care 10/24/20 16:17 Active UA W/MICROSCOPIC [URIN] Stat Lab 10/24/20 17:20 Results Labs: Laboratory Tests 10/24/20 10/24/20 10/24/20 Range/Units 17:07 17:20 17:20 Sodium 136 L (140-148) mmol/L Potassium 4.5 (3.6-5.2) mmol/L Chloride 102 (100-108) mmol/L Carbon Dioxide 24 (21-32) mmol/L Anion Gap 14.5 H (5.0-14.0) mmol/L BUN 15 (7-18) mg/dL Creatinine 0.6 (0.6-1.0) mg/dL Est Cr Clr Drug Dosing 105.42 mL/min Estimated GFR (MDRD) > 60 (>60) Glucose 85 (74-106) mg/dL Calcium 8.2 L (8.5-10.1) mg/dL Urine Color Yellow (YELLOW) Urine Appearance Clear (CLEAR) Urine pH 5.5 (5.0-8.0) Ur Specific [place] 1.030 (1.008-1.030) Urine Protein Negative (NEGATIVE) mg/dL Urine Glucose (UA) Negative (NEGATIVE) mg/dL Urine Ketones Negative (NEGATIVE) mg/dL Urine Occult Blood Trace-intact H (NEGATIVE) Urine Nitrite Negative (NEGATIVE) Urine Bilirubin Negative (NEGATIVE) Urine Urobilinogen 0.2 (0.2-1.0) EU/dL Ur Leukocyte Esterase Negative (NEGATIVE) Urine HCG, Qual Negative Departure - Departure Time of Disposition: 17:46 Disposition: Home, Self-Care 01 Condition: Fair Clinical Impression: Mild dehydration - Discharge Information *PRESCRIPTION DRUG MONITORING PROGRAM REVIEWED*: Not Applicable *COPY OF PRESCRIPTION DRUG MONITORING REPORT IN PATIENT ROBLES: Not Applicable Referrals: PCP,None [Primary Care Provider] - Additional Instructions: Drink enough fluids so your urine is light yellow in color. Recheck as needed. Sepsis Event Note (ED) - Evaluation Sepsis Screening Result: No Definite Risk - Focused Exam Vital Signs: Vital Signs Temp Pulse Resp BP Pulse Ox 10/24/20 16:24 75 20 139/90 10/24/20 16:17 36.8 C 76 20 139/90 99 - My Orders Last 24 Hours: My Active Orders 10/24/20 16:17 Orthostatic Vital Signs [RC] ASDIRECTED 10/24/20 17:20 UA W/MICROSCOPIC [URIN] Stat - Assessment/Plan Last 24 Hours: My Active Orders 10/24/20 16:17 Orthostatic Vital Signs [RC] ASDIRECTED 10/24/20 17:20 UA W/MICROSCOPIC [URIN] Stat
== END 2020-10-24 18:04 | disposition home or self-care (01) ==
LOC: JP.ED 16:10
DX: E86.0 Dehydration (principal); E03.9 Hypothyroidism, unspecified; E66.9 Obesity, unspecified; Z68.42 Body mass index [BMI] 45.0-49.9, adult; Z79.899 Other long term (current) drug therapy
CPT/HCPCS: 36415; 80048; 81001; 81025; 99282; 99284

== ENCOUNTER 2022-04-17 19:57 | Emergency (ER) | payer MEDICARE, MEDICAID ==
[2022-04-17] MEDS ORDERED: Ondansetron 4 MG/2 ML SDV IVPUSH ONE (21:24)
[2022-04-17] MEDS ORDERED: Lactated Ringers 500 ML IV SCH (21:30)
[2022-04-17] MEDS ORDERED: REMDESIVIR 200 MG in Sodium Chloride 0.9% 250 ML IV ONE (22:01)
[2022-04-17] MEDS ORDERED: Sodium Chloride 0.9% 500 ML IV ONE (22:01)
[2022-04-17 22:18] VITALS: PULSE 108
[2022-04-17 23:00] VITALS: BP 116/71
== END 2022-04-18 00:11 | disposition home or self-care (01) ==
LOC: JP.ED 19:57
DX: U07.1 COVID-19 (principal); E03.9 Hypothyroidism, unspecified; E66.9 Obesity, unspecified; Z79.899 Other long term (current) drug therapy; Z68.42 Body mass index [BMI] 45.0-49.9, adult
CPT/HCPCS: 36415; 80048; 80076; 83605; 85025; 85610; 85730; 96361; 96365; 96375; 99281; 99284; J0248; J2405; J7040; J7050

== ENCOUNTER 2023-04-10 19:48 | Emergency (ER) | payer MEDICARE, MEDICAID ==
[2023-04-10 20:30] VITALS: BP 116/70; PULSE 104
[2023-04-10] MEDS ORDERED: Pantoprazole 40 MG Vial IVPUSH ONE (20:32)
[2023-04-10 20:41] LABS: BASOPHILS PERCENT AUTO 0.1 % (0.1-1.3); HEMATOCRIT 37.7 % (34.3-46.0); HEMOGLOBIN 12.1 g/dL (11.2-15.5); IMMATURE GRAN ABSOLUTE AUTO 0.04 K/uL (0.00-0.23); IMMATURE GRAN PERCENT AUTO 0.4 % (0.0-0.7); LYMPHOCYTES ABSOLUTE AUTO 0.43 K/uL (0.8-3.3); LYMPHOCYTES PERCENT AUTO 4.7 % (11.4-47.7); MEAN CORPUSCULAR HEMOGLOBIN 25.2 pg (31.6-35.5); MEAN CORPUSCULAR HGB CONC 32.1 g/dL (31.6-35.5); MEAN CORPUSCULAR VOLUME 78.5 fL (81.4-99.0); MONOCYTES ABSOLUTE AUTO 0.67 K/uL (0.20-0.90); MONOCYTES PERCENT AUTO 7.3 % (3.3-12.6); NEUTROPHILS PERCENT AUTO 87.5 % (40.0-78.1); PLATELET COUNT,PLT 358 K/uL (130-375); WHITE BLOOD CELL COUNT,WBC 9.2 K/uL (3.2-11.0)
[2023-04-10 20:43] LABS: BASOPHILS ABSOLUTE AUTO 0.01 K/uL (0.00-0.10)
[2023-04-10] MEDS ORDERED: Sodium Chloride 0.9% 1,000 ML IV SCH (20:45)
[2023-04-10 21:10] LABS: ALANINE AMINOTRANSFERASE,ALT 35 U/L (12-78); ALBUMIN 3.7 g/dL (3.4-5.0); ALKALINE PHOSPHATASE 182 U/L (46-116); AMYLASE 103 U/L (25-115); ANION GAP 13.5 mmol/L (5.0-14.0); ASPARTATE AMNIOTRANSFERASE,AST 35 U/L (15-37); BILIRUBIN TOTAL 0.2 mg/dL (0.2-1.0); BLOOD UREA NITROGEN,BUN 13 mg/dL (7-18); CALCIUM 8.4 mg/dL (8.5-10.1); CARBON DIOXIDE,CO2 25 mmol/L (21-32); CHLORIDE,CL 102 mmol/L (100-108); CREATININE 0.9 mg/dL (0.6-1.0); EST CRCL DRUG DOSING (CG) 66.01 mL/min; ESTIMATED GFR 79 mL/min (>60); GLUCOSE RANDOM 126 mg/dL (74-106); POTASSIUM,K 4.5 mmol/L (3.6-5.2); PROTEIN TOTAL,TP 7.6 g/dL (6.4-8.2); SODIUM,NA 136 mmol/L (140-148); TSH ULTRASENSITIVE 1.545 uIU/mL (0.358-3.740)
[2023-04-10] MEDS ORDERED: Sodium Chloride 0.9% 50 ML IV SCH (21:15)
[2023-04-10] MEDS ORDERED: Iopamidol 612 MG/ML 150 ML Bottle IV SCH (21:15)
[2023-04-10 22:38] LABS: APPEARANCE,URINE CLEAR (CLEAR); BILIRUBIN,URINE NEGATIVE (NEGATIVE); COLOR,URINE YELLOW (YELLOW); GLUCOSE,URINE NEGATIVE (NEGATIVE); KETONES,URINE NEGATIVE (NEGATIVE); LEUKOCYTE ESTERASE,URINE NEGATIVE (NEGATIVE); NITRITE,URINE NEGATIVE (NEGATIVE); OCCULT BLOOD,URINE NEGATIVE (NEGATIVE); PROTEIN,URINE NEGATIVE (NEGATIVE); UROBILINOGEN,URINE 0.2 EU/dL (0.2-1.0)
[2023-04-10 22:48] LABS: AMORPHOUS SEDIMENT,URINE NOT SEEN; BACTERIA,URINE FEW; EPITHELIAL CELLS,URINE FEW; MUCUS,URINE RARE; RBC,URINE 0-5 (0-5)
== END 2023-04-10 22:58 | disposition home or self-care (01) ==
LOC: JP.ED 19:48
DX: K52.9 Noninfective gastroenteritis and colitis, unspecified (principal); E03.9 Hypothyroidism, unspecified; E66.9 Obesity, unspecified; Z68.41 Body mass index [BMI] 40.0-44.9, adult; Z79.899 Other long term (current) drug therapy; Z90.49 Acquired absence of other specified parts of digestive tract; Z90.710 Acquired absence of both cervix and uterus
CPT/HCPCS: 36415; 74177; 80053; 81001; 82150; 83690; 83735; 84443; 85025; 99284; J3490; J7030; Q9967

== ENCOUNTER 2023-07-11 07:45 | Day surgery (SDC) | payer MEDICARE, MEDICAID ==
[2023-07-11] MEDS ORDERED: Sodium Chloride 0.9% 1,000 ML IV SCH (08:15)
[2023-07-11] MEDS ORDERED: Propofol 200 MG/20 ML SDV ONE ×2 (08:23→09:56)
[2023-07-11] MEDS ORDERED: Midazolam 1 MG/ML 2 ML SDV ONE (08:23)
[2023-07-11] MEDS ORDERED: fentaNYL 50 MCG/ML SDV ONE (08:23)
[2023-07-11 11:06] VITALS: BP 131/77; PULSE 80
== END 2023-07-11 11:55 | disposition home or self-care (01) ==
LOC: JP.SDS 07:45
PROVIDERS: ATTEND Surgery
DX: Z12.11 Encounter for screening for malignant neoplasm of colon (principal); Q43.8 Other specified congenital malformations of intestine; F32.A Depression, unspecified; E03.9 Hypothyroidism, unspecified; G89.29 Other chronic pain; E66.9 Obesity, unspecified; Z88.1 Allergy status to other antibiotic agents; Z68.41 Body mass index [BMI] 40.0-44.9, adult
CPT/HCPCS: G0121; J2250; J2704; J3010; J7030

== ENCOUNTER 2023-07-24 18:39 | Emergency (ER) | payer MEDICARE, MEDICAID ==
[2023-07-24 18:57] VITALS: BP 126/69; PULSE 92
== END 2023-07-24 19:27 | disposition home or self-care (01) ==
LOC: JP.ED 18:39
DX: S00.83XA Contusion of other part of head, initial encounter (principal); E03.9 Hypothyroidism, unspecified; E66.9 Obesity, unspecified; Z68.41 Body mass index [BMI] 40.0-44.9, adult; Z88.1 Allergy status to other antibiotic agents; Z79.899 Other long term (current) drug therapy; W01.198A Fall on same level from slipping, tripping and stumbling with subsequent striking against other object, initial encounter; Y92.002 Bathroom of unspecified non-institutional (private) residence as the place of occurrence of the external cause
CPT/HCPCS: 99283; 99284

== ENCOUNTER 2023-07-29 20:36 | Emergency (ER) | payer MEDICARE, MEDICAID ==
[2023-07-29 20:57] VITALS: BP 139/79; PULSE 79
== END 2023-07-29 21:26 | disposition home or self-care (01) ==
LOC: JP.ED 20:36
DX: F32.A Depression, unspecified (principal); E03.9 Hypothyroidism, unspecified; E66.9 Obesity, unspecified; Z79.899 Other long term (current) drug therapy; Z88.1 Allergy status to other antibiotic agents
CPT/HCPCS: 99283

== ENCOUNTER 2024-07-22 18:00 | Emergency (ER) | payer MEDICARE, MEDICAID ==
[2024-07-22 18:33] LABS: BASOPHILS ABSOLUTE AUTO 0.01 K/uL (0.00-0.10); BASOPHILS PERCENT AUTO 0.2 % (0.1-1.3); HEMATOCRIT 36.5 % (34.3-46.0); HEMOGLOBIN 11.5 g/dL (11.2-15.5); IMMATURE GRAN PERCENT AUTO 0.2 % (0.0-0.7); LYMPHOCYTES ABSOLUTE AUTO 2.41 K/uL (0.8-3.3); LYMPHOCYTES PERCENT AUTO 42.8 % (11.4-47.7); MEAN CORPUSCULAR HEMOGLOBIN 24.4 pg (31.6-35.5); MEAN CORPUSCULAR HGB CONC 31.5 g/dL (31.6-35.5); MEAN CORPUSCULAR VOLUME 77.3 fL (81.4-99.0); MONOCYTES ABSOLUTE AUTO 0.69 K/uL (0.20-0.90); MONOCYTES PERCENT AUTO 12.3 % (3.3-12.6); NEUTROPHILS ABSOLUTE AUTO 2.51 K/uL (1.0-7.6); NEUTROPHILS PERCENT AUTO 44.5 % (40.0-78.1); PLATELET COUNT,PLT 416 K/uL (130-375); RED BLOOD CELL COUNT 4.72 M/uL (3.77-5.24); WHITE BLOOD CELL COUNT,WBC 5.6 K/uL (3.2-11.0)
[2024-07-22 18:34] LABS: IMMATURE GRAN ABSOLUTE AUTO 0.01 K/uL (0.00-0.23)
[2024-07-22 18:49] LABS: ANION GAP 13.7 mmol/L (5.0-14.0); CALCIUM 8.5 mg/dL (8.5-10.1); CREATININE 0.9 mg/dL (0.6-1.0); EST CRCL DRUG DOSING (CG) 59.15 mL/min; POTASSIUM,K 4.7 mmol/L (3.6-5.2)
[2024-07-22 19:27] VITALS: BP 148/80; PULSE 91
== END 2024-07-22 19:40 | disposition home or self-care (01) ==
LOC: JP.ED 18:00
DX: E86.0 Dehydration (principal); E03.9 Hypothyroidism, unspecified; Z90.49 Acquired absence of other specified parts of digestive tract; Z90.710 Acquired absence of both cervix and uterus; Z79.899 Other long term (current) drug therapy; Z88.1 Allergy status to other antibiotic agents
CPT/HCPCS: 36415; 80048; 83605; 84484; 85025; 85379; 93005; 99284

== ENCOUNTER 2024-11-12 21:30 | Emergency (ER) | payer MEDICARE, MEDICAID ==
[2024-11-12 22:14] VITALS: BP 114/76; PULSE 90
== END 2024-11-12 22:07 | disposition left against medical advice (07) ==
LOC: JP.ED 21:30
DX: Z53.21 Procedure and treatment not carried out due to patient leaving prior to being seen by health care provider (principal)